=== PATIENT | female | born 1960 | race Caucasian/White ===

== ENCOUNTER 2019-09-06 09:16 | Outpatient (CLI) | payer OTHER, MEDICARE, SELFPAY ==
--- NOTE | 2019-09-06 09:29 | MM_ITS ---
WS: [id number] DIAGNOSTIC LEFT DIGITAL MAMMOGRAM WITH CAD LEFT breast ultrasound, limited HISTORY: 6 MO FOLLOW UP BREAST MASS COMPARISON: None available. Technique: CC, MLO and ML views. For compression LEFT MLO and LEFT CC. Breast composition: The breasts are heterogeneously dense, which may obscure small masses. Asymmetry in the central LEFT breast as the prior study is not quite as dense as previously seen. There is sti ll asymmetric fibroglandular tissue in the anterior breast and scattered calcifications. No distortio n. LEFT breast ultrasound. Ultrasound at 1:00, 3 cm from the nipple again demonstrates the vague hypoechoic mass which is ill-de fined and no shadowing measuring 1.7 x 0.6 x 1.4 cm. There is an adjacent well-circumscribed hypoecho ic nodule with calcification. Calcification is in this location on the mammogram. There are a few sca ttered hypodensities throughout the breast. These findings in totality are probably all benign. No ob vious progression of disease. MM/[place] [id number] IMPRESSION: BI-RADS: 3-Probably Benign FOLLOW UP: 6 Month Follow-up Patient to return for annual mammogram in January 2020. Additional imaging of the LEFT breast and possible ultrasound should be performed at that time. Long -term stability documentation is necessary.
== END 2019-09-06 09:17 | disposition home or self-care (01) ==
LOC: RADSHAW 09:16
PROVIDERS: Family Provider Family Medicine; PCP Family Medicine; Visit Provider Family Medicine
DX: N63.20 Unspecified lump in the left breast, unspecified quadrant (principal)
CPT/HCPCS: 76642; 77065

== ENCOUNTER 2020-03-15 14:05 | Inpatient (IN) | payer MEDICARE, SELFPAY ==
[2020-03-15] VITALS (7 sets, daily range): BP systolic 113–139; BP diastolic 69–112; PULSE 97–128; RESP 16–18; TEMP 36.9–37.1; O2SAT 90–98; BMI 46.6
[2020-03-15 15:52] LABS: Basophils # 0.1 10^3/uL (0.0-0.1); Basophils % 0.6 %; Eosinophils % 0.4 %; Hematocrit 41.9 % (37.0-47.0); Hemoglobin 13.3 g/dL (11.5-15.3); Lymphocytes # 1.3 10^3/uL (0.8-4.8); Lymphocytes % 12.7 %; Mean Corpuscular HGB Conc 31.7 g/dL (30.0-36.0); Mean Corpuscular Hemoglobin 30.2 pg (28.0-34.0); Mean Platelet Volume 8.5 fL (7.4-10.4); Monocytes # 0.6 10^3/uL (0.2-0.9); Neutrophils # 8.04 10^3/uL (1.8-7.7); Neutrophils % 79.5 %; Nucleated Red Blood Cells % 0 %; Platelet Count 276 10^3/cmm (130-400); Red Blood Count 4.41 10^6/uL (4.1-5.3); Red Cell Distribution Width 13.5 % (12.1-15.1); White Blood Count 10.1 10^3/uL (4.0-10.0)
--- NOTE | 2020-03-15 16:15 | CTR_ITS ---
PROCEDURE INFORMATION: Exam: CT Abdomen And Pelvis With Contrast Exam date and time: 03/15/2020 5:00 PM Age: 59 years old Clinical indication: Abdominal pain; Generalized; Prior surgery; Surgery date: 6+ months; Surgery type: Hystorectomy; Additional info: Abd pain TECHNIQUE: Imaging protocol: Computed tomography of the abdomen and pelvis with intravenous contrast. Radiation optimization: All CT scans at this facility use at least one of these dose optimization techniques: automated exposure control; mA and/or kV adjustment per patient size (includes targeted exams where dose is matched to clinical indication); or iterative reconstruction. Contrast material: VISIPAQUE 300; Contrast volume: 95 ml; Contrast route: INTRAVENOUS (IV); COMPARISON: No relevant prior studies available. RADIATION DOSE METRICS: Total DLP (mGy-cm): 1877.92 FINDINGS: Lungs: There is calcified granuloma at the right lung base. Liver: There is no focal abnormality within the liver. Gallbladder and bile ducts: The gallbladder is normal. The gallbladder is normal. Pancreas: The pancreas is normal. Spleen: The spleen is normal. Adrenals: The adrenal glands are normal. Kidneys and ureters: The kidneys are normal. There is no evidence of hydronephrosis. There is no evidence of renal or ureteral calcifications. Stomach and bowel: There is no evidence of colitis/diverticulitis. There is an abnormal loop of small bowel with wall thickening and mural stratification representing some focal enteritis of uncertain etiology. This could represent inflammatory bowel disease or could be related to other entities including medication-related. There is associated edema in the mesentery of the affected bowel loops. Appendix: A normal appendix is identified. Intraperitoneal space: There is ascites within the pelvis which has greater density posteriorly suggesting this may represent some hemorrhagic ascites. Vasculature: Unremarkable. No abdominal aortic aneurysm. Lymph nodes: Unremarkable. No enlarged lymph nodes. Urinary bladder: Unremarkable as visualized. Reproductive: There has been a hysterectomy. Bones/joints: The lumbar spine demonstrates moderate degenerative changes at multiple levels. Soft tissues: Unremarkable. CT/CT abdomen pelvis w con* [id number] IMPRESSION: 1. Nonspecific enteritis involving some small bowel loops in the left lower quadrant. 2. Hemorrhagic ascites. Radiation Dose CTDIVOL = (mGy): DLP = 1877.92 (mGy-cm)
--- NOTE | 2020-03-15 16:20 | W.ED.ABDPA2 ---
Documented by User: Zack Oneill DO 03/18/20 06:32 HPI - Abdominal Pain General: Chief Complaint: Abdominal Pain Stated Complaint: abdominal pain, labs check Time Seen by Provider: 03/15/20 15:51 History of Present Illness: HPI narrative: 59-year-old female presents to the emergency room with complaint of suprapubic pain radiating up into the right flank. She not noticed any fever she not noticed any hematuria but she has had microscopic hematuria in the past and is seen Dr. Mercedes. She is been very nauseous but she is not had any vomiting or diarrhea. Pain is sort of waxed and waned over the last several days. At all today she did once this morning and none since. She does not have any increase in back pain or new radicular leg pain. States this is been going on for the last 1 to 2 days. Additionally she has a mechanical prosthetic valve and is on Coumadin. She has had significant increase in bruising. MD elicited complaint: abdominal pain and flank pain Pertinent past history: past UTI Onset (ago): day(s) Location: RLQ Severity: severe Quality: cramping and aching Radiation: none Migration to: no migration Exacerbating factors: movement Relieving factors: medication and rest Context: other (Recent development of easy bruising, patient is on Coumadin for anticoagulation due to mechanical valve) Associated Symptoms: Reports anorexia, GI cramping, dysuria, nausea and poor appetite; Denies belching, bloating, change in bowel habits, change in stool character, chills, coffee ground emesis, constipation, diarrhea, dyspepsia, excessive flatus, fever(s), heartburn, hematochezia, hematuria, hematemesis, fecal incontinence, loose stools, melena, syncope and vomiting Review of Systems Const: Denies: fever(s) or chills ENMT: Denies: throat pain, ear or mastoid pain, nasal discharge or nasal congestion Card: Denies: syncope Resp: Denies: dyspnea, productive cough or non-productive cough GI: Reports: nausea and GI cramping; Denies: vomiting, hematemesis, coffee ground emesis, heartburn, diarrhea, constipation, bloating, belching, excessive flatus, fecal incontinence, change in bowel habits, change in stool character, hematochezia or melena : Reports: dysuria; Denies: hematuria Skin/Breast: Denies: rash or pruritus PFSH ED PFSH: Medical History Anxiety and depression Asymptomatic microscopic hematuria Cervical disc disease Fibromyalgia GERD (gastroesophageal reflux disease) takes OTC meds Hyperlipidemia Mitral valve disorder Smoker Surgical History History of ectopic I had surgery to clean scar tissue out of my tubes and I got a tubal that had to be operated on a couple years later History of fusion of cervical spine Anterior x 2 History of knee replacement, total Right History of left breast biopsy Hx of abdominal hysterectomy / BSO Hx of mitral valve replacement Mechanical 2008 Family History Father , AT AGE 84 COLON CANCER,PULMONARY FIBROSIS Cancer Mother Diabetes Social History Smoking and tobacco status: current every day smoker Alcohol intake: never Adopted: No Caregiver/support person: No Current occupational status: disabled Physical Exam Const: COMMON NORMALS: no acute distress GENERAL APPEARANCE: cooperative and comfortable ORIENTATION/CONSCIOUSNESS: Yes awake, Yes oriented to person, Yes oriented to place and Yes oriented to time HENMT: COMMON NORMALS: normocephalic, atraumatic and hearing grossly normal bilaterally HEAD & SCALP: normocephalic and atraumatic Neck/C-Spine: COMMON NORMALS: full ROM, no lymphadenopathy, supple and no JVD Resp: COMMON NORMALS: normal respiratory effort, No retractions, No use of accessory muscles and clear to auscultation bilaterally AUSCULTATION: clear to auscultation bilaterally Cardio: COMMON NORMALS: no JVD, regular rate, regular rhythm and No murmurs present (Cardio) RATE: regular rate RHYTHM: regular rhythm GI: COMMON NORMALS: No hepatosplenomegaly present AUSCULTATION: Yes normoactive bowel sounds PALPATION: Yes Tenderness to palpation present (GI) Details: RLQ, No Guarding due to palpation present (GI) and Yes No hepatosplenomegaly present Extremity: COMMON NORMALS: capillary refill normal, no clubbing, cyanosis or edema, no calf tenderness and no pedal edema Neuro: SENSORIUM/ORIENTATION: Yes oriented to person, Yes oriented to place and Yes oriented to time Skin: NARRATIVE SKIN EXAM: Several areas of bruising on the extremities Course Vital Signs: Vital signs: Vital Signs Temperature 97.9 F 03/18/20 03:04 Pulse Rate 80 03/18/20 03:04 Respiratory Rate 19 H 03/18/20 03:04 Blood Pressure 122/69 03/18/20 03:04 Pulse Oximetry 94 03/18/20 03:04 MDM - Abdominal Pain MDM Narrative: Medical decision making narrative: Care turned over to Dr. Wang at change of shift please see his notes for definitive diagnosis and disposition Lab Data: Labs: Lab Results 03/15/20 03/15/20 03/15/20 Range/Units 15:44 15:44 15:44 WBC 10.1 H (4.0-10.0) 10^3/ uL RBC 4.41 (4.1-5.3) 10^6/u L Hgb 13.3 (11.5-15.3) g/dL Hct 41.9 (37.0-47.0) % MCV 95.0 (81-99) fL MCH 30.2 (28.0-34.0) pg MCHC 31.7 (30.0-36.0) g/dL RDW 13.5 (12.1-15.1) % Plt Count 276 (130-400) 10^3/c mm MPV 8.5 (7.4-10.4) fL Neut % (Auto) 79.5 % Lymph % (Auto) 12.7 % Houghton % (Auto) 6.0 % Eos % (Auto) 0.4 % Baso % (Auto) 0.6 % Neut # (Auto) 8.04 H (1.8-7.7) 10^3/u L Lymph # (Auto) 1.3 (0.8-4.8) 10^3/u L Houghton # (Auto) 0.6 (0.2-0.9) 10^3/u L Eos # (Auto) 0.0 (0.0-0.8) 10^3/u L Baso # (Auto) 0.1 (0.0-0.1) 10^3/u L Nucleated RBC % (a uto) 0 % Nucleated RBCs # 0.0 /100WBC PT 71.80 H (12.1-14.9) SECO NDS INR 8.21 H* (0.8-1.2) APTT 190.1 H* (23.9-36.7) SECO NDS Sodium 132 L (136-145) mmol/L Potassium 4.1 (3.5-5.1) mmol/L Chloride 96 L (98-107) mmol/L Carbon Dioxide 24 (22-29) mmol/L Anion Gap 16.1 (5-19) BUN 12 (6-20) mg/dL Creatinine 1.2 H (0.5-0.9) mg/dL GFR Calculation 46.1 L (90-130) mL/min Glucose 130 H (65-115) mg/dL Calculated Osmolal ity 276 L (285-295) mOsm/k g Calcium 9.3 (8.5-10.5) mg/dL Iron (37-145) ug/dL TIBC mcg/dl % Saturation (20-50) % Unsat Iron Binding (112-347) ug/dL Total Bilirubin 0.5 (0.15-1.2) mg/dL AST 24 (0-32) U/L ALT 20 (0-33) U/L Alkaline Phosphata se 144 H (35-105) IU/L NT-Pro-B Natriuret Pep (0-125) pg/mL Total Protein 7.6 (6.6-8.7) g/dL Albumin 3.6 (3.5-5.2) g/dL Globulin 4.0 (1.3-4.6) g/dL Lipase 20 (13-60) U/L TSH (0.27-4.20) uIU/ mL Urine Color (Yellow) Urine Appearance (CLEAR) Urine pH (5-7) Ur Specific Gravit y (1.005-1.030) Urine Protein (Negative) Urine Glucose (UA) (Normal) Urine Ketones (Negative) Urine Blood (Negative) Urine Nitrate (Negative) Urine Bilirubin (Negative) Urine Urobilinogen (Negative) mg/dL Ur Leukocyte Leticia ase (Negative) Urine RBC (0-2) /hpf Urine WBC (0-5) /hpf Ur Squamous Epith Cells (0-5) /hpf Amorphous Sediment Urine Bacteria (NONE) /hpf 03/15/20 03/15/20 Range/Units 15:44 17:23 WBC (4.0-10.0) 10^3/ uL RBC (4.1-5.3) 10^6/u L Hgb (11.5-15.3) g/dL Hct (37.0-47.0) % MCV (81-99) fL MCH (28.0-34.0) pg MCHC (30.0-36.0) g/dL RDW (12.1-15.1) % Plt Count (130-400) 10^3/c mm MPV (7.4-10.4) fL Neut % (Auto) % Lymph % (Auto) % Houghton % (Auto) % Eos % (Auto) % Baso % (Auto) % Neut # (Auto) (1.8-7.7) 10^3/u L Lymph # (Auto) (0.8-4.8) 10^3/u L Houghton # (Auto) (0.2-0.9) 10^3/u L Eos # (Auto) (0.0-0.8) 10^3/u L Baso # (Auto) (0.0-0.1) 10^3/u L Nucleated RBC % (a uto) % Nucleated RBCs # /100WBC PT (12.1-14.9) SECO NDS INR (0.8-1.2) APTT (23.9-36.7) SECO NDS Sodium (136-145) mmol/L Potassium (3.5-5.1) mmol/L Chloride (98-107) mmol/L Carbon Dioxide (22-29) mmol/L Anion Gap (5-19) BUN (6-20) mg/dL Creatinine (0.5-0.9) mg/dL GFR Calculation (90-130) mL/min Glucose (65-115) mg/dL Calculated Osmolal ity (285-295) mOsm/k g Calcium (8.5-10.5) mg/dL Iron 26 L (37-145) ug/dL TIBC 266 mcg/dl % Saturation 9.7 L (20-50) % Unsat Iron Binding 240 (112-347) ug/dL Total Bilirubin (0.15-1.2) mg/dL AST (0-32) U/L ALT (0-33) U/L Alkaline Phosphata se (35-105) IU/L NT-Pro-B Natriuret Pep 275 H (0-125) pg/mL Total Protein (6.6-8.7) g/dL Albumin (3.5-5.2) g/dL Globulin (1.3-4.6) g/dL Lipase (13-60) U/L TSH 1.47 (0.27-4.20) uIU/ mL Urine Color Yellow (Yellow) Urine Appearance Sl cloudy A (CLEAR) Urine pH 5 (5-7) Ur Specific Gravit y 1.005 (1.005-1.030) Urine Protein Neg (Negative) Urine Glucose (UA) Norm (Normal) Urine Ketones Negative (Negative) Urine Blood 3+ H (Negative) Urine Nitrate Negative (Negative) Urine Bilirubin Neg (Negative) Urine Urobilinogen Neg (Negative) mg/dL Ur Leukocyte Leticia ase Negative (Negative) Urine RBC 15-25 H (0-2) /hpf Urine WBC 0-4 H (0-5) /hpf Ur Squamous Epith Cells 10-15 H (0-5) /hpf Amorphous Sediment Not Reportable Urine Bacteria 1+ H (NONE) /hpf Discharge Plan Discharge Patient Disposition: Admitted As Inpatient Admit Provider: Lauren Arnett Clinical Impression: Coagulopathy, Hemorrhagic ascites Condition: Stable Referrals: Elver Veloz MD [Primary Care Provider] - Discharge Date/Time: 03/15/20 19:05 Coding Level of Care Code ED Furniture Mover Driver for Chg Fwd Documented by User: Cole Wang DO 03/15/20 18:29 HPI - Abdominal Pain General: Chief Complaint: Abdominal Pain Stated Complaint: abdominal pain, labs check Time Seen by Provider: 03/15/20 15:51 PFSH ED PFSH: Medical History Anxiety and depression Asymptomatic microscopic hematuria Cervical disc disease Fibromyalgia GERD (gastroesophageal reflux disease) takes OTC meds Hyperlipidemia Mitral valve disorder Smoker Surgical History History of ectopic I had surgery to clean scar tissue out of my tubes and I got a tubal that had to be operated on a couple years later History of fusion of cervical spine Anterior x 2 History of knee replacement, total Right History of left breast biopsy Hx of abdominal hysterectomy / BSO Hx of mitral valve replacement Mechanical 2007 Family History Father , AT AGE 84 COLON CANCER,PULMONARY FIBROSIS Cancer Mother Diabetes Social History Smoking and tobacco status: current every day smoker Alcohol intake: never Adopted: No Caregiver/support person: No Current occupational status: disabled Course Vital Signs: Vital signs: Vital Signs Temperature 97.9 F 03/18/20 03:04 Pulse Rate 80 03/18/20 03:04 Respiratory Rate 19 H 03/18/20 03:04 Blood Pressure 122/69 03/18/20 03:04 Pulse Oximetry 94 03/18/20 03:04 MDM - Abdominal Pain MDM Narrative: Medical decision making narrative: 59-year-old lady checked out to me by Dr. Oneill at shift change. This lady had experienced mainly right-sided belly pain. She was also concerned that she has been taking too much Coumadin. Her hemoglobin is 13. Her white blood cell count is 10. Her INR is 9. She has hemorrhagic ascites and a focal area of enteritis of her small bowel on CT, that is likely a small amount of hemorrhage as well. She will come in for Coumadin coagulopathy as well as monitoring her blood count Lab Data: Labs: Lab Results 03/15/20 03/15/20 03/15/20 Range/Units 15:44 15:44 15:44 WBC 10.1 H (4.0-10.0) 10^3/ uL RBC 4.41 (4.1-5.3) 10^6/u L Hgb 13.3 (11.5-15.3) g/dL Hct 41.9 (37.0-47.0) % MCV 95.0 (81-99) fL MCH 30.2 (28.0-34.0) pg MCHC 31.7 (30.0-36.0) g/dL RDW 13.5 (12.1-15.1) % Plt Count 276 (130-400) 10^3/c mm MPV 8.5 (7.4-10.4) fL Neut % (Auto) 79.5 % Lymph % (Auto) 12.7 % [place] % (Auto) 6.0 % Eos % (Auto) 0.4 % Baso % (Auto) 0.6 % Neut # (Auto) 8.04 H (1.8-7.7) 10^3/u L Lymph # (Auto) 1.3 (0.8-4.8) 10^3/u L [place] # (Auto) 0.6 (0.2-0.9) 10^3/u L Eos # (Auto) 0.0 (0.0-0.8) 10^3/u L Baso # (Auto) 0.1 (0.0-0.1) 10^3/u L Nucleated RBC % (a uto) 0 % Nucleated RBCs # 0.0 /100WBC PT 71.80 H (12.1-14.9) SECO NDS INR 8.21 H* (0.8-1.2) APTT 190.1 H* (23.9-36.7) SECO NDS Sodium 132 L (136-145) mmol/L Potassium 4.1 (3.5-5.1) mmol/L Chloride 96 L (98-107) mmol/L Carbon Dioxide 24 (22-29) mmol/L Anion Gap 16.1 (5-19) BUN 12 (6-20) mg/dL Creatinine 1.2 H (0.5-0.9) mg/dL GFR Calculation 46.1 L (90-130) mL/min Glucose 130 H (65-115) mg/dL Calculated Osmolal ity 276 L (285-295) mOsm/k g Calcium 9.3 (8.5-10.5) mg/dL Iron (37-145) ug/dL TIBC mcg/dl % Saturation (20-50) % Unsat Iron Binding (112-347) ug/dL Total Bilirubin 0.5 (0.15-1.2) mg/dL AST 24 (0-32) U/L ALT 20 (0-33) U/L Alkaline Phosphata se 144 H (35-105) IU/L NT-Pro-B Natriuret Pep (0-125) pg/mL Total Protein 7.6 (6.6-8.7) g/dL Albumin 3.6 (3.5-5.2) g/dL Globulin 4.0 (1.3-4.6) g/dL Lipase 20 (13-60) U/L TSH (0.27-4.20) uIU/ mL Urine Color (Yellow) Urine Appearance (CLEAR) Urine pH (5-7) Ur Specific Gravit y (1.005-1.030) Urine Protein (Negative) Urine Glucose (UA) (Normal) Urine Ketones (Negative) Urine Blood (Negative) Urine Nitrate (Negative) Urine Bilirubin (Negative) Urine Urobilinogen (Negative) mg/dL Ur Leukocyte Leticia ase (Negative) Urine RBC (0-2) /hpf Urine WBC (0-5) /hpf Ur Squamous Epith Cells (0-5) /hpf Amorphous Sediment Urine Bacteria (NONE) /hpf 03/15/20 03/15/20 Range/Units 15:44 17:23 WBC (4.0-10.0) 10^3/ uL RBC (4.1-5.3) 10^6/u L Hgb (11.5-15.3) g/dL Hct (37.0-47.0) % MCV (81-99) fL MCH (28.0-34.0) pg MCHC (30.0-36.0) g/dL RDW (12.1-15.1) % Plt Count (130-400) 10^3/c mm MPV (7.4-10.4) fL Neut % (Auto) % Lymph % (Auto) % [place] % (Auto) % Eos % (Auto) % Baso % (Auto) % Neut # (Auto) (1.8-7.7) 10^3/u L Lymph # (Auto) (0.8-4.8) 10^3/u L [place] # (Auto) (0.2-0.9) 10^3/u L Eos # (Auto) (0.0-0.8) 10^3/u L Baso # (Auto) (0.0-0.1) 10^3/u L Nucleated RBC % (a uto) % Nucleated RBCs # /100WBC PT (12.1-14.9) SECO NDS INR (0.8-1.2) APTT (23.9-36.7) SECO NDS Sodium (136-145) mmol/L Potassium (3.5-5.1) mmol/L Chloride (98-107) mmol/L Carbon Dioxide (22-29) mmol/L Anion Gap (5-19) BUN (6-20) mg/dL Creatinine (0.5-0.9) mg/dL GFR Calculation (90-130) mL/min Glucose (65-115) mg/dL Calculated Osmolal ity (285-295) mOsm/k g Calcium (8.5-10.5) mg/dL Iron 26 L (37-145) ug/dL TIBC 266 mcg/dl % Saturation 9.7 L (20-50) % Unsat Iron Binding 240 (112-347) ug/dL Total Bilirubin (0.15-1.2) mg/dL AST (0-32) U/L ALT (0-33) U/L Alkaline Phosphata se (35-105) IU/L NT-Pro-B Natriuret Pep 275 H (0-125) pg/mL Total Protein (6.6-8.7) g/dL Albumin (3.5-5.2) g/dL Globulin (1.3-4.6) g/dL Lipase (13-60) U/L TSH 1.47 (0.27-4.20) uIU/ mL Urine Color Yellow (Yellow) Urine Appearance Sl cloudy A (CLEAR) Urine pH 5 (5-7) Ur Specific Gravit y 1.005 (1.005-1.030) Urine Protein Neg (Negative) Urine Glucose (UA) Norm (Normal) Urine Ketones Negative (Negative) Urine Blood 3+ H (Negative) Urine Nitrate Negative (Negative) Urine Bilirubin Neg (Negative) Urine Urobilinogen Neg (Negative) mg/dL Ur Leukocyte Leticia ase Negative (Negative) Urine RBC 15-25 H (0-2) /hpf Urine WBC 0-4 H (0-5) /hpf Ur Squamous Epith Cells 10-15 H (0-5) /hpf Amorphous Sediment Not Reportable Urine Bacteria 1+ H (NONE) /hpf Discharge Plan Discharge Patient Disposition: Admitted As Inpatient Admit Provider: Lauren Arntet Clinical Impression: Coagulopathy, Hemorrhagic ascites Condition: Stable Referrals: Elver Veloz MD [Primary Care Provider] - Discharge Date/Time: 03/15/20 19:05 Coding Level of Care Code ED Furniture Mover Driver for Bertin Felix
[2020-03-15 16:30] LABS: Alanine Aminotransferase 20 U/L (0-33); Albumin Level 3.6 g/dL (3.5-5.2); Alkaline Phosphatase 144 IU/L (35-105); Anion Gap 16.1 (5-19); Aspartate Amino Transferase 24 U/L (0-32); Blood Urea Nitrogen 12 mg/dL (6-20); Calcium 9.3 mg/dL (8.5-10.5); Carbon Dioxide 24 mmol/L (22-29); Chloride 96 mmol/L (98-107); Glomerular Filtration Rate 46.1 mL/min (90-130); Glucose 130 mg/dL (65-115); Lipase 20 U/L (13-60); Osmolality Calculated 276 mOsm/kg (285-295); Potassium 4.1 mmol/L (3.5-5.1); Sodium 132 mmol/L (136-145); Total Bilirubin 0.5 mg/dL (0.15-1.2); Total Protein 7.6 g/dL (6.6-8.7)
[2020-03-15] MEDS: iodixanol 320 mg/mL 100mL Btl IV (17:08)
[2020-03-15 17:22] LABS: INR 8.21 (0.8-1.2); Partial Thromboplastin Time 190.1 SECONDS (23.9-36.7)
[2020-03-15 17:54] LABS: Add Urine Microscopic? YES; Bilirubin Urine Neg (Negative); Blood Urine 3+ (Negative); Glucose Urine UA Norm (Normal); Ketones Urine Negative (Negative); Leukocyte Esterase Urine Negative (Negative); Nitrate Urine Negative (Negative); Protein Urine Neg (Negative); Specific Gravity, Urine 1.005 (1.005-1.030); Urine Color Yellow (Yellow); Urobilinogen Urine Neg (Negative); pH Urine 5 (5-7)
[2020-03-15 18:01] LABS: WBC Urine 0-4 /hpf (0-5)
[2020-03-15 18:02] LABS: Add Urine Culture? No; Bacteria Urine 1+ /hpf; RBC Urine 15-25 /hpf (0-2)
[2020-03-15] MEDS: ondansetron 2 mg/ML SDV 2 mL 4 MG IVP (18:11)
[2020-03-15] MEDS: morphine 4 mg/mL SDV 1 mL IVP (18:13)
[2020-03-15] MEDS: nicotine 21 mg Patch 1 PATCH TRANSDERMA (18:25)
[2020-03-15] MEDS: LORazepam 2 mg/mL INJ 1 mL 1 MG IVP (18:26)
--- NOTE | 2020-03-15 18:55 | PM.HP ---
Providers/Chief Complaint Primary Care Provider: Elver Veloz MD Chief Complaint: sent from doc/ History of Present Illness Jyothi Hendrix is a 59 year old female with past medical history of mechanical mitral valve placement more than 10 years ago, on chronic Coumadin 8 mg daily, anxiety/depression, chronic smoker along with other medical problems who presented to the ER today because she was afraid that she took more Coumadin dose then she needed to. Patient states at baseline she supposed to take 8 mg of Coumadin every day but there was a mixup in her pill maintenance planner and she was taking 30 mg tablets every day for last 10 days almost. She is also been complaining of right flank pain radiating to groin for last 2 days which she thought was secondary to possibly passing kidney stone. She denies of having any fever, diarrhea, dysuria, nausea, vomiting, fever or flulike symptoms or exposure to COVID-19. She does states that last week she saw Dr. Mercedes for hematuria. In the ER her blood work showed white count of 10.1, hemoglobin of 13.3, platelet count of 276, INR of 8.2, sodium of 132, chloride of 96, BUN of 12, creatinine of 1.2, lactate of 1.2, AST/ALT of 24/20, alkaline phosphatase of 144, BNP of 275, lipase of 20 UA showing 3+ blood, negative nitrite, negative leuk esterase with CT abdomen pelvis showing nonspecific enteritis involving the small bowel loops in the left lower quadrant along with possible hemorrhagic localized cystitis which as per the radiologist most likely represents focal small bowel hemorrhage with hemorrhagic ascites. Review of Systems General: Reports: 10 or more systems reviewed and unremarkable except in HPI and below Const: Denies: fever(s), chills, body aches, change in appetite, change in weight, malaise, night sweats, diaphoresis, change in sleep pattern, daytime sleepiness or snoring Eyes: Denies: change in vision, blurry vision, photophobia, eye discomfort or eye discharge ENMT: Denies: throat pain, enlarged tonsils, hoarseness, mouth pain, oral sores, dry mouth, tinnitus, nasal congestion or post nasal drip Card: Denies: chest pain, palpitations, irregular heart rhythm, edema, swelling of feet/ankles, lightheadedness, syncope, pre-syncope, dyspnea on exertion, orthopnea, leg pain with exertion or acrocyanosis Resp: Denies: dyspnea, productive cough, non-productive cough, wheezing, stridor, pain on inspiration, change in phlegm color, hemoptysis or chest congestion GI: Denies: abdominal pain, nausea, vomiting, hematemesis, coffee ground emesis, dysphagia, heartburn, diarrhea, constipation, bloating, GI cramping, change in bowel habits, pain on defecation, hematochezia or melena : Denies: flank pain, dysuria, urinary frequency, urinary urgency, urinary hesitancy, nocturia or hematuria Musc: Denies: neck pain, back pain, extremity pain, joint pain, joint swelling, joint redness, joint stiffness or limited range of motion Neuro: Denies: headache(s), numbness in extremities, weakness in extremities, sensory changes, lack of coordination, difficulty walking, frequent falls, dizziness, vertigo, confusion, Slurred speech present, difficulty communicating thoughts or seizure-like activity Psych: Denies: anxiety, depression, mood swings, panic attacks, hopelessness or irritability Endo: Denies: polyuria, polydipsia, tired all the time, cold intolerance, excessive sweating, flushing or heat intolerance John/Lymph: Denies: easy bruising or easy bleeding All/Imm: Denies: tongue swelling, facial swelling or acute wheezing Medications/Allergies Allergies Allergy/AdvReac Type Severity Reaction Status Date / Time amitriptyline [From Elavil] Allergy Unknown Unknown Verified 03/15/20 12:31 PFSH Acute PFSH: Medical History Anxiety and depression Asymptomatic microscopic hematuria Cervical disc disease Fibromyalgia Hyperlipidemia Mitral valve disorder Smoker Surgical History (Updated 03/15/20 @ 19:08 by Carlos Otoole MD) History of fusion of cervical spine History of knee replacement, total Hx of abdominal hysterectomy Hx of mitral valve replacement Family History (Updated 03/15/20 @ 12:37 by ZOYA Ornelas) Father , AT AGE 84 COLON CANCER,PULMONARY FIBROSIS Cancer Mother Diabetes Social History (Updated 03/15/20 @ 14:53 by Shar Adams RN) Smoking and tobacco status: current every day smoker Alcohol intake: never Adopted: No Caregiver/support person: No Current occupational status: disabled Vitals/I&O/Wt Last Vital Signs Temp 98.6 F 03/15/20 14:45 Pulse 128 H 03/15/20 18:15 Resp 18 03/15/20 18:15 BP 139/112 03/15/20 18:15 Pulse Ox 97 03/15/20 18:15 Weight last 48 hrs Weight 135.171 kg Physical Exam Narrative: EXAM NARRATIVE: General: No acute distress, AO x3, morbidly obese, anxious HEENT: PERRLA, pupils bilaterally equal and reactive Chest: Normal vesicular breath sounds, no added sounds, equal good air entry bilaterally CVS: S1-S2 regular, no murmurs, no tachycardia, no gallops, no rubs, mitral click heard Abdomen: Soft, tender in right lower quadrant, no flank tenderness, no organomegaly, bowel sounds present Neuro: No focal deficits, no facial deformity, AO x3, power 5/5 in all limbs Data : 03/15/20 15:44 03/15/20 15:44 A&P Assessment and plan (1) Supratherapeutic INR: Status: Acute (2) Coagulopathy: Status: Acute (3) Hemorrhagic ascites: Status: Acute (4) Enteritis: Status: Acute (5) Hx of mitral valve replacement: Status: Acute (6) Anxiety and depression: Status: Acute (7) Smoker: Discussed in detail regarding need of smoking cessation for patient. She states she is trying to quit. Nicotine patch. Status: Acute Additional A&P Information 51-year-old female presented to the ER because of mixup in her Coumadin dose along with right flank pain found to have an INR of [address] scan concerning for enteritis and possible hemorrhagic ascites. Supratherapeutic INR: Goal INR 2.5-3.5 for mechanical mitral valve. INR 8. Patient was given 5 mg of IV vitamin K in the ER. I am mildly concerned for overcorrection of INR. We will check INR again at around 11 PM. If INR overcorrected might have to start patient on heparin drip. We will monitor INR daily for now. Continue holding Coumadin till INR in range. Enteritis/hemorrhagic ascites: Surgery has been consulted through ER. We will await Dr. Schroeder's recommendations. N.p.o. for now. Stool studies. Start on Cipro and Flagyl IV. Monitor hemoglobin at 11 PM and then daily. Mechanical mitral valve: Good click heard on patient today. Echocardiogram done for EF and mitral valve function. Anxiety: Medication list reconciled with patient. Continue on multiple anxiety medications which she takes at home including clonazepam 1 mg twice daily, duloxetine 60 mg twice daily, BuSpar 15 mg twice daily, temazepam 15 mg at bedtime. Hypertension: Goal blood pressure less than 140/90 mmHg. Patient takes metoprolol 50 mg twice daily at home. Continue the same for now. Patient is mildly tachycardic but has no other signs of shock. Full code. N.p.o. Protonix for PUD prophylaxis Supratherapeutic INR so need no need of DVT pharmacological prophylaxis. Admit to CSU Attestations Medical Necessity Statement*: for more than 2 midnights for treatment of hemorrhagic ascitis due to entritis in setting of supratherapeutic INR and mechanical mitral valve Time Spent in Patient Care: Greater than 35 minutes (>than 50% of time spent in counselling and/or direct pt care on unit). Coding Level of Care Code Acute Exhibitor Sales for [facility] Fwd Diagnoses Supratherapeutic INR R79.1 Coagulopathy D68.9 Hemorrhagic ascites R18.8 Enteritis K52.9 Hx of mitral valve replacement Z95.2 Anxiety and depression F41.9; F32.9 Smoker F17.200
[2020-03-15] MEDS: phytonadione (ADULT) 10 mg/mL Ampule 1 mL 5 MG IV (19:06)
[2020-03-15] MEDS: pantoprazole 40 mg SDV IVP (19:27)
[2020-03-15 19:49] LABS: Iron 26 ug/dL (37-145); NT Pro B Type Natriuretic Pept 275 pg/mL (0-125); Percent Saturation 9.7 % (20-50); Thyroid Stimulating Hormone 1.47 uIU/mL (0.27-4.20); Total Iron Binding Capacity 266 mcg/dl; Unsaturated Iron Binding 240 ug/dL (112-347)
[2020-03-15 20:50] LABS: Lactic Sepsis W/Reflex 1.2 mmol/L (0.5-2.2)
[2020-03-15] MEDS: duloxetine 60 mg Capsule PO (21:34)
[2020-03-15] MEDS: ciprofloxacin 200 MG/100 ML PREMIX 100 MG IV (21:34)
[2020-03-15] MEDS: metoprolol tartrate 50 mg Tablet PO (21:34)
[2020-03-15] MEDS: CLONazepam 1 mg Tablet PO (21:34)
[2020-03-15] MEDS: temazepam 15 mg Capsule PO (21:34)
[2020-03-15] MEDS: metroNIDAZOLE IV 500 MG/100 ML PREMIX 100 MG IV (21:35)
[2020-03-15] MEDS: sodium chlor 0.9% + KCl 20 mEq 20 MEQ/1,000 ML BAG 50 MEQ IV (21:36)
[2020-03-15 23:40] LABS: Hematocrit 36.7 % (37.0-47.0); Hemoglobin 11.5 g/dL (11.5-15.3)
[2020-03-15 23:47] LABS: INR 1.79 (0.8-1.2)
[2020-03-16] VITALS (9 sets, daily range): BP systolic 104–121; BP diastolic 64–80; PULSE 78–100; RESP 16–23; TEMP 36.5–37.2; O2SAT 90–98
[2020-03-16] MEDS: morphine 4 mg/mL SDV 1 mL 2 MG IVP ×2 (02:08→16:01)
[2020-03-16] MEDS: metroNIDAZOLE IV 500 MG/100 ML PREMIX 100 MG IV ×3 (03:59→20:02)
[2020-03-16 05:35] LABS: Basophils # 0.1 10^3/uL (0.0-0.1); Basophils % 0.7 %; Eosinophils # 0.1 10^3/uL (0.0-0.8); Eosinophils % 1.1 %; Hematocrit 34.8 % (37.0-47.0); Lymphocytes # 1.2 10^3/uL (0.8-4.8); Lymphocytes % 17.3 %; Mean Corpuscular HGB Conc 31.6 g/dL (30.0-36.0); Mean Corpuscular Volume 94.8 fL (81-99); Mean Platelet Volume 8.8 fL (7.4-10.4); Monocytes # 0.7 10^3/uL (0.2-0.9); Monocytes % 9.2 %; Neutrophils # 4.99 10^3/uL (1.8-7.7); Neutrophils % 70.6 %; Nucleated Red Blood Cells % 0 %; Platelet Count 239 10^3/cmm (130-400); Red Blood Count 3.67 10^6/uL (4.1-5.3); Red Cell Distribution Width 13.5 % (12.1-15.1); White Blood Count 7.1 10^3/uL (4.0-10.0)
[2020-03-16 05:47] LABS: INR 1.45 (0.8-1.2)
[2020-03-16 06:02] LABS: Alanine Aminotransferase 13 U/L (0-33); Albumin Level 2.9 g/dL (3.5-5.2); Alkaline Phosphatase 107 IU/L (35-105); Anion Gap 11.1 (5-19); Aspartate Amino Transferase 17 U/L (0-32); Blood Urea Nitrogen 12 mg/dL (6-20); Calcium 8.6 mg/dL (8.5-10.5); Carbon Dioxide 24 mmol/L (22-29); Chloride 104 mmol/L (98-107); Globulin 3.1 g/dL (1.3-4.6); Glucose 111 mg/dL (65-115); Magnesium 1.9 mg/dL (1.7-2.3); Osmolality Calculated 280 mOsm/kg (285-295); Phosphorus 2.8 mg/dL (2.5-4.5); Potassium 4.1 mmol/L (3.5-5.1); Sodium 135 mmol/L (136-145); Total Bilirubin 1.1 mg/dL (0.15-1.2)
--- NOTE | 2020-03-16 08:07 | PM.PN ---
Subjective Subjective: Interval history: No acute events overnight. Patient has remained hemodynamically stable. No abdominal pain currently. On examination patient sleeping comfortably in bed. Has not had any bowel movements. Vitals/I&O/Wt Last Vital Signs Temp 98.2 F 03/16/20 07:40 Pulse 95 03/16/20 07:40 Resp 20 H 03/16/20 07:40 BP 104/76 03/16/20 07:40 Pulse Ox 98 03/16/20 07:40 03/15/20 03/16/20 03/16/20 22:59 06:59 14:59 Intake Total 100 / 100 Balance 100 / 100 Weight last 48 hrs Weight 135.579 kg Weight 135.171 kg Physical Exam Narrative: EXAM NARRATIVE: General: No acute distress, AO x3, morbidly obese, HEENT: PERRLA, pupils bilaterally equal and reactive Chest: Normal vesicular breath sounds, no added sounds, equal good air entry bilaterally CVS: S1-S2 regular, no murmurs, no tachycardia, no gallops, no rubs, mitral click heard Abdomen: Soft, tender in right lower quadrant, no flank tenderness, no organomegaly, bowel sounds present Neuro: No focal deficits, no facial deformity, AO x3, power 5/5 in all limbs Data : 03/16/20 13:54 03/16/20 05:13 A&P Assessment and plan (1) Supratherapeutic INR: Status: Acute (2) Coagulopathy: Status: Acute (3) Hemorrhagic ascites: Status: Acute (4) Enteritis: Status: Acute (5) Hx of mitral valve replacement: Status: Acute (6) Anxiety and depression: Status: Acute (7) Smoker: Discussed in detail regarding need of smoking cessation for patient. She states she is trying to quit. Nicotine patch. Status: Acute Additional A&P Information 51-year-old female presented to the ER because of mixup in her Coumadin dose along with right flank pain found to have an INR of [address] scan concerning for enteritis and possible hemorrhagic ascites. Supratherapeutic INR: Goal INR 2.5-3.5 for mechanical mitral valve. INR overcorrected with vitamin K given in the ER. 1.4 today morning. Start patient on heparin drip without bolus. We will continue to monitor hemoglobin every 12 hourly. Recheck hemoglobin at 3 PM if stable can start patient on 6 mg of warfarin from today evening. Check INR daily. For now continue heparin until INR starts coming in goal. Enteritis/hemorrhagic ascites: Appreciate Dr. Schroeder's recommendations. Started on clear liquid diet. We will continue to monitor. Stool studies sent results awaited.. Start on Cipro and Flagyl IV. For hemorrhagic cystitis continue to trend hemoglobin every 12 hourly. Hemoglobin 11.5 last night and 11 today morning. Most likely slightly dilutional. Patient has remained hemodynamically stable. Iron panel suggestive of iron deficiency anemia so we will start patient on IV iron supplementation. [place]ORET[place]: Creatinine 1.2 yesterday trending down to 1.1 today. We do not have baseline. Medical reconciliation done for nephrotoxic drugs. Mechanical mitral valve cardiogram done shows an EF of 62% with normal positioning and normal functioning bioprosthetic mitral valve with peak velocity across the valve of 2 mm/s Anxiety: Medication list reconciled with patient. Continue on multiple anxiety medications which she takes at home including clonazepam 1 mg twice daily, duloxetine 60 mg twice daily, BuSpar 15 mg twice daily, temazepam 15 mg at bedtime. Hypertension: Goal blood pressure less than 140/90 mmHg. Patient takes metoprolol 50 mg twice daily at home. For now will decrease to 25 mg twice daily. Started on clear liquid diet and tolerating well so we will stop IV fluids. Full code. Clear liquid diet. Protonix for PUD prophylaxis Started on heparin drip. Attestations Medical Necessity Statement*: Needs further hospitalization for management of enteritis along with hemorrhagic ascites in setting of overcorrected supratherapeutic INR for mechanical mitral valve now on heparin drip. Time Spent in Patient Care: Greater than 35 minutes (>than 50% of time spent in counselling and/or direct pt care on unit). Coding Level of Care Code Acute Litigation Claim Representative for [facility] Fwd Diagnoses Supratherapeutic INR R79.1 Coagulopathy D68.9 Hemorrhagic ascites R18.8 Enteritis K52.9 Hx of mitral valve replacement Z95.2 Anxiety and depression F41.9; F32.9 Smoker F17.200
--- NOTE | 2020-03-16 08:10 | PC.NURSE ---
Heparin order clarified with Dr. Otoole. telephone order received to not administer loading dose, start patient on 14 units/kg/hr. RBTO. Nurse to continue to monitor.
--- NOTE | 2020-03-16 08:39 | P.CONIM_ITS ---
Providers/Reason For Consult Consulting Physican/Specialty*: General Surgery Michael Schroeder MD Reason for Consult*: Abdominal pain, coagulopathy, abnormal CAT scan. Attending Physician: Carlos Otoole MD Primary Care Provider: Elver Veloz MD History of Present Illness History of Present Illness Jyothi Hendrix is a 59 year old female who says that she developed some right lower quadrant/right groin pain a couple of nights ago. She reports no history of trauma. She saw a nurse practitioner who eventually sent her to the emergency room. The patient also mentioned that she realized she had been taking too much Coumadin for perhaps 10 days. Her INR was found to be signific antly elevated. In addition, a CAT scan of the abdomen and pelvis showed a focal area of small bowel enteritis in addition to some fluid in the abdomen that the radiologist thought may have some blood within it. The patient denies any fevers or chills. She says her bowel movements have been normal although she admits to ongoing constipation and takes daily MiraLAX and stool softeners for this. She has not had any evidence of hematochezia or melena. Everyone else around her has not been ill, nor have they gotten any abdominal problems eating the same things that she has been eating. The patient says her abdominal pain is better, but it is still present. Review of Systems General: Reports: 10 or more systems reviewed and unremarkable except in HPI and below Const: Denies: fever(s) or chills GI: Reports: abdominal pain and constipation ( Normal for me ); Denies: vomiting or change in bowel habits : Reports: hematuria (Microscopic -saw Dr. Mercedes and no problems were found) Meds/Allergies Home Medications and Allergies Allergies Allergy/AdvReac Type Severity Reaction Status Date / Time amitriptyline [From Elavil] Allergy Unknown I cannot Verified 03/16/20 09:16 remember -- it happened 30 years ago Current Medications Current Medications Generic Name Dose Route Start Last Admin Trade Name Freq PRN Reason Stop Dose Admin Buspirone HCl 15 mg 03/15/20 19:30 03/15/20 21:33 Buspar PO 15 mg BID CAESAR Administration Clonazepam 1 mg 03/15/20 19:30 03/15/20 21:34 Klonopin PO 1 mg BID CAESAR Administration Duloxetine HCl 60 mg 03/15/20 19:30 03/15/20 21:34 Cymbalta PO 60 mg BID CAESAR Administration Potassium Chloride/Sodium Chloride 20 meq in 1,000 mls @ 50 mls/hr 03/15/20 19:06 03/15/20 21:36 Sodium Chlor 0.9% + Kcl 20 Meq IV 50 mls/hr .Q20H CAESAR Administration Ciprofloxacin/Dextrose 200 mg in 100 mls @ 100 mls/hr 03/15/20 21:00 03/15/20 21:34 Cipro IV 100 mls/hr Q12H CAESAR Administration Protocol Metronidazole 500 mg in 100 mls @ 100 mls/hr 03/15/20 20:00 03/16/20 03:59 Flagyl Iv IV 100 mls/hr Q8H CAESAR Administration Protocol Morphine Sulfate 2 mg 03/15/20 19:10 03/16/20 02:08 Morphine IVP 2 mg Q4H PRN Administration SEVERE PAIN Pantoprazole Sodium 40 mg 03/15/20 19:06 03/15/20 19:27 Protonix IVP 40 mg DAILY CAESAR Administration Temazepam 15 mg 03/15/20 21:00 03/15/20 21:34 Restoril PO 15 mg BEDTIME CAESAR Administration PFSH Acute PFSH: Medical History Anxiety and depression Asymptomatic microscopic hematuria Cervical disc disease Fibromyalgia GERD (gastroesophageal reflux disease) takes OTC meds Hyperlipidemia Mitral valve disorder Smoker Surgical History (Updated 03/16/20 @ 09:14 by Michael Schroeder MD) History of ectopic I had surgery to clean scar tissue out of my tubes and I got a tubal that had to be operated on a couple years later History of fusion of cervical spine Anterior x 2 History of knee replacement, total Right History of left breast biopsy Hx of abdominal hysterectomy / BSO Hx of mitral valve replacement Mechanical 2007 Family History Father , AT AGE 84 COLON CANCER,PULMONARY FIBROSIS Cancer Mother Diabetes Social History Smoking and tobacco status: current every day smoker Alcohol intake: never Adopted: No Caregiver/support person: No Current occupational status: disabled Vitals/I&O/Wt Last Vital Signs Temp 98.2 F 03/16/20 07:40 Pulse 95 03/16/20 07:40 Resp 20 H 03/16/20 07:40 BP 104/76 03/16/20 07:40 Pulse Ox 98 03/16/20 07:40 03/15/20 03/16/20 03/16/20 22:59 06:59 14:59 Intake Total 100 / 100 Balance 100 / 100 Weight last 48 hrs Weight 298 lb 14.4 oz Weight 298 lb Physical Exam Narrative: EXAM NARRATIVE: The patient was encountered in her hospital room. She does not appear to be in any distress. The pupils are equal. No carotid bruits are heard. Lungs are clear anteriorly. The heart is regular and there is a mechanical heart valve sound best heard at the left lower sternal border and over the mitral area. The abdomen is obese and has hypoactive bowel sounds. The patient seemed to have significant moderate epigastric tenderness when I first palpated, but upon repeat exam it does not seem to be as bad. She has very mild scattered lower abdominal tenderness. No obvious masses are palpated. The extremities reveal no significant edema. Neurologically the patient appears to be grossly intact. Data Imaging^: CT Abd/Pel: Radiologist's impression: CT abdomen/pelvis 03/15/2020 IMPRESSION: 1. Nonspecific enteritis involving some small bowel loops in the left lower quadrant. 2. Hemorrhagic ascites. A&P Assessment and plan (1) Enteritis: CT reviewed. There is no question that the patient appears to have a focal area of small bowel enteritis in the left lower quadrant. Interestingly, this is not where she seems to be tender. The patient continues on Ciprofloxaclin and metronidazole. White blood cell count remains normal. Status: Acute (2) Hemorrhagic ascites: The patient has a small amount of fluid in the pelvis that the radiologist thinks may have some blood within it. Obviously this is somewhat hard to know with any certainty but is a possibility given the patient's recent supratherapeutic INR. I do not anticipate that this is going to be any kind of an issue as the INR is brought down. Status: Acute Consult Attestations Medical Necessity Statement: See admitting service's notation. Coding Level of Care Code Acute Advice Nurse for [facility] Diagnoses Enteritis K52.9 Hemorrhagic ascites R18.8
[2020-03-16] MEDS: metoprolol tartrate 25 mg Tablet PO ×2 (09:20→17:32)
[2020-03-16] MEDS: CLONazepam 1 mg Tablet PO ×2 (09:20→17:31)
[2020-03-16] MEDS: duloxetine 60 mg Capsule PO ×2 (09:20→17:31)
[2020-03-16] MEDS: pantoprazole 40 mg SDV IVP (09:21)
[2020-03-16] MEDS: heparin drip 25,000 UNIT/500 ML PREMIX 36 UNIT IV (09:27)
[2020-03-16] MEDS: ciprofloxacin 200 MG/100 ML PREMIX 100 MG IV ×2 (09:28→21:25)
--- NOTE | 2020-03-16 11:20 | PC.NURSE ---
Verbal order received to adjust weight based heparin protocol dosages to 297 lb. Adjustments made to paperwork, 2 nurse verification. Infusion rate remains at 36 ml/hr. Dr. Otoole also gave verbal order to time PTT and H&H for 1400. Nurse to continue to monitor.
[2020-03-16 14:17] LABS: Hemoglobin 10.5 g/dL (11.5-15.3)
[2020-03-16] MEDS: sodium chlor 0.9% + KCl 20 mEq 20 MEQ/1,000 ML BAG 50 MEQ IV (14:48)
[2020-03-16 14:53] LABS: Partial Thromboplastin Time 130.1 SECONDS (23.9-36.7)
[2020-03-16] MEDS: warfarin 3 mg Tablet 6 MG PO (15:59)
--- NOTE | 2020-03-16 19:06 | USCV_ITS ---
Simeon Jyothi Age: 59 Gender: F : 1960 Exam Date: 03/16/2020 07:16 Ordering Phys: Carlos Otoole MD Technologist: Renae Presley Exam Location: [facility] Indication: Bioprosthetic mitral valve BP: 109 / 80 HR: 95 Rhythm: Sinus Technical Quality: Technically difficult study MEASUREMENTS (Male / Female) Normal Values 2D ECHO LV Diastolic Diameter PLAX 4.7 cm 4.2 - 5.9 / 3.9 - 5.3 cm LV Systolic Diameter PLAX 3.0 cm LV Chamber Size 2.9 cm IVS Diastolic Thickness 1.1 cm 0.6 - 1.0 / 0.6 - 0.9 cm IVS Systolic Thickness 1.2 cm LVPW Diastolic Thickness 1.1 cm 0.6 - 1.0 / 0.6 - 0.9 cm LVPW Systolic Thickness 1.4 cm RV Chamber Size 1.8 cm LVOT Diameter 2.1 cm LV Ejection Fraction 2D Teich 65.9 % LV Ejection Fraction MOD 2C 64.2 % LV Ejection Fraction 2C AL 62.8 % LA Diameter 3.1 cm LA Width 3.7 cm LA Height 4.6 cm RA Width 2.5 cm RA Height 4.8 cm Aorta at Sinotubular Diameter 2.2 cm M-MODE LV Diastolic Diameter MM 4.1 cm 4.2 - 5.9 / 3.9 - 5.3 cm LV Systolic Diameter MM 2.5 cm LV Ejection Fraction MM Teich 70.4 % IVS Diastolic Thickness MM 1.1 cm 0.6 - 1.0 / 0.6 - 0.9 cm IVS Systolic Thickness MM 1.5 cm LVPW Diastolic Thickness MM 1.4 cm 0.6 - 1.0 / 0.6 - 0.9 cm LVPW Systolic Thickness MM 1.3 cm RV Diastolic Diameter MM 0.6 cm Aortic Annulus Diameter 2.6 cm LA Ao Ratio MM 1.5 DOPPLER AV Peak Velocity 139.3 cm/s LVOT Peak Velocity 110.0 cm/s AV Area Cont Eq vti 2.7 cm squared AV Area Cont Eq pk 2.7 cm squared MV Peak Velocity 197.0 cm/s MV Area PHT 5.0 cm squared MV E' Velocity 88.0 cm/s Mitral E to MV E' Ratio 14.2 Mitral E to LV E' Lateral Ratio 13.4 Mitral E to LV E' Septal Ratio 14.9 TV Peak E Velocity 60.0 cm/s Right Atrial Pressure 3.0 mmHg PV Peak Velocity 67.0 cm/s RV Acceleration Time 0.1 s RV Ejection Time 0.2 s RV AcT/ET 0.3 FINDINGS Left Ventricle Normal left ventricular size and systolic function, EF 62 %. No regional wall motion abnormalities. Right Ventricle Normal right ventricular size and systolic function. Right Atrium Normal right atrial size. Left Atrium Mildly increased left atrial size. Mitral Valve Bioprosthetic valve the mitral position appears to be well- seated. Peak velocity across the mitral valve was 2.0 m/s. Aortic Valve Thickened aortic valve. Trace aortic valve regurgitation. Tricuspid Valve Trace tricuspid valve regurgitation. Pulmonic Valve Pulmonic valve not well visualized. Pericardium No pericardial effusion. Aorta Normal aortic annulus size. CONCLUSIONS Normal left ventricular size and systolic function, EF 62 %. Bioprosthetic valve the mitral position appears to be well- seated. Peak velocity across the mitral valve was 2.0 m/s. Thickened aortic valve. Trace aortic valve regurgitation. Trace tricuspid valve regurgitation. No regional wall motion abnormalities. There is no pericardial effusion. There are no intracardiac masses. Compared to the previous study from 09/04/2016, there may not be a [id number] Dr Melvin Santos MD FACC (Electronically Signed) Final Date: 16 March 2020 14:14 S
--- NOTE | 2020-03-16 19:12 | PC.NURSE ---
Shift Summary Rest of shift uneventful. Patient up ad nikhil to bathroom and around room, tolerating activity well. No further needs identified at this time. Report given to oncoming nurse.
[2020-03-16] MEDS: temazepam 15 mg Capsule PO (21:29)
[2020-03-16 21:51] LABS: Partial Thromboplastin Time 139.7 SECONDS (23.9-36.7)
[2020-03-17] VITALS (8 sets, daily range): BP systolic 123–150; BP diastolic 66–88; PULSE 82–100; RESP 15–24; TEMP 36.4–36.8; O2SAT 90–96
[2020-03-17] MEDS: metroNIDAZOLE IV 500 MG/100 ML PREMIX 100 MG IV (03:07)
[2020-03-17] MEDS: heparin drip 25,000 UNIT/500 ML PREMIX 20 UNIT IV (05:22)
[2020-03-17 05:51] LABS: Basophils % 0.8 %; Eosinophils # 0.2 10^3/uL (0.0-0.8); Hemoglobin 10.2 g/dL (11.5-15.3); Lymphocytes # 1.2 10^3/uL (0.8-4.8); Lymphocytes % 24.9 %; Mean Corpuscular HGB Conc 30.9 g/dL (30.0-36.0); Mean Corpuscular Volume 97.1 fL (81-99); Mean Platelet Volume 8.8 fL (7.4-10.4); Monocytes # 0.5 10^3/uL (0.2-0.9); Monocytes % 10.7 %; Neutrophils # 2.78 10^3/uL (1.8-7.7); Neutrophils % 58.3 %; Nucleated Red Blood Cells % 0 %; Platelet Count 234 10^3/cmm (130-400); Red Cell Distribution Width 13.6 % (12.1-15.1); White Blood Count 4.8 10^3/uL (4.0-10.0)
[2020-03-17 06:36] LABS: Alanine Aminotransferase 13 U/L (0-33); Albumin Level 3.1 g/dL (3.5-5.2); Alkaline Phosphatase 107 IU/L (35-105); Aspartate Amino Transferase 17 U/L (0-32); Blood Urea Nitrogen 10 mg/dL (6-20); Calcium 8.8 mg/dL (8.5-10.5); Carbon Dioxide 25 mmol/L (22-29); Chloride 105 mmol/L (98-107); Glucose 106 mg/dL (65-115); Osmolality Calculated 283 mOsm/kg (285-295); Sodium 137 mmol/L (136-145); Total Bilirubin 0.5 mg/dL (0.15-1.2); Total Protein 6.1 g/dL (6.6-8.7)
[2020-03-17 06:50] LABS: INR 1.17 (0.8-1.2)
--- NOTE | 2020-03-17 07:41 | PM.PN ---
Subjective Subjective: Interval history: The patient says she still feels about the same. She does not have any pain unless she moves around. She had a normal bowel movement yesterday. Vitals/I&O/Wt Last Vital Signs Temp 97.9 F 03/17/20 04:00 Pulse 85 03/17/20 04:00 Resp 18 03/17/20 04:00 BP 125/66 03/17/20 04:00 Pulse Ox 90 03/17/20 04:00 03/16/20 03/17/20 03/17/20 22:59 06:59 14:59 Intake Total 2903.800 / 4556.667 192.867 / 4556.667 Balance 2903.800 / 4556.667 192.867 / 4556.667 Weight last 48 hrs Weight 297 lb 9 oz Weight 298 lb 14.4 oz Weight 298 lb Physical Exam Narrative: EXAM NARRATIVE: Upon entering the patient's room, she was sleeping but was easily arousable. The abdomen remains with scattered tenderness today. Data : 03/17/20 05:23 03/17/20 05:23 Micro: Microbiology 03/16/20 11:58 MRSA Culture - Final Nose 03/16/20 11:58 Stool Lactoferrin - Final Stool C.difficile Toxin B Gene (PCR) - Final Occult Blood (FIT) - Final A&P Assessment and plan (1) Enteritis: CT reviewed. There is no question that the patient appears to have a focal area of small bowel enteritis in the left lower quadrant. Interestingly, this is not where she seems to be tender. The patient continues on Ciprofloxaclin and metronidazole. White blood cell count remains normal and the patient remains afebrile. Status: Acute (2) Hemorrhagic ascites: The patient has a small amount of fluid in the pelvis that the radiologist thinks may have some blood within it. Obviously this is somewhat hard to know with any certainty but is a possibility given the patient's recent supratherapeutic INR. I do not anticipate that this is going to be any kind of an issue as the INR is brought down. Status: Acute Attestations Medical Necessity Statement*: See admitting service's notation. Coding Level of Care Code Acute Event Set Up Specialist for [facility] Diagnoses Enteritis K52.9 Hemorrhagic ascites R18.8
--- NOTE | 2020-03-17 07:44 | P.PN_ITS ---
Subjective Subjective: Interval history: No events overnight. Has remained hemodynamically stable. Patient states she is feeling the same. Denies nausea, vomiting, headache, dizziness. Had one bowel movement yesterday which is well formed without any bleeding. Tolerating clear liquid diet well. Vitals/I&O/Wt Last Vital Signs Temp 98.2 F 03/17/20 07:39 Pulse 100 03/17/20 07:39 Resp 16 03/17/20 07:39 BP 135/79 03/17/20 07:39 Pulse Ox 95 03/17/20 07:39 03/16/20 03/17/20 03/17/20 22:59 06:59 14:59 Intake Total 2903.800 / 4363.800 192.867 / 4556.667 Balance 2903.800 / 4363.800 192.867 / 4556.667 Weight last 48 hrs Weight 134.972 kg Weight 135.579 kg Weight 135.171 kg Physical Exam Narrative: EXAM NARRATIVE: General: No acute distress, AO x3, morbidly obese, HEENT: PERRLA, pupils bilaterally equal and reactive Chest: Normal vesicular breath sounds, no added sounds, equal good air entry bilaterally CVS: S1-S2 regular, no murmurs, no tachycardia, no gallops, no rubs, mitral click heard Abdomen: Soft, tender in right lower quadrant, no flank tenderness, no organomegaly, bowel sounds present Neuro: No focal deficits, no facial deformity, AO x3, power 5/5 in all limbs Data : 03/17/20 05:23 03/17/20 05:23 Micro: Microbiology 03/16/20 11:58 MRSA Culture - Final Nose 03/16/20 11:58 Stool Lactoferrin - Final Stool C.difficile Toxin B Gene (PCR) - Final Occult Blood (FIT) - Final A&P Assessment and plan (1) Supratherapeutic INR: Status: Acute (2) Coagulopathy: Status: Acute (3) Hemorrhagic ascites: Status: Acute (4) Enteritis: Status: Acute (5) Hx of mitral valve replacement: Status: Acute (6) Anxiety and depression: Status: Acute (7) Smoker: Discussed in detail regarding need of smoking cessation for patient. She states she is trying to quit. Nicotine patch. Status: Acute Additional A&P Information 51-year-old female presented to the ER because of mixup in her Coumadin dose along with right flank pain found to have an INR of [address] scan concerning for enteritis and possible hemorrhagic ascites. Supratherapeutic INR: Goal INR 2.5-3.5 for mechanical mitral valve. INR overcorrected with vitamin K given in the ER. 1.1 today morning. Continue with heparin drip I will transition her over to Coumadin and once her INR reaches near goal can stop the heparin drip at that point. Coumadin 10 mg oral today. Check INR daily. For now continue heparin until INR starts coming in goal. Enteritis/hemorrhagic ascites: Appreciate Dr. Schroeder's recommendations. Started on clear liquid diet. We will continue to monitor. Stool studies negative. Switch over to oral Cipro and Flagyl. Will require 5-day course. Day 3 today. Advance diet to full liquid today. For hemorrhagic cystitis: Trend hemoglobin daily for now as has remained stable till now. Iron panel suggestive of iron deficiency anemia. Continue with oral iron supplementation. LORETTA: Creatinine 1.2 yesterday trending down to 1.1 today. We do not have baseline. Medical reconciliation done for nephrotoxic drugs. Mechanical mitral valve cardiogram done shows an EF of 62% with normal positioning and normal functioning bioprosthetic mitral valve with peak velocity across the valve of 2 mm/s Anxiety: Medication list reconciled with patient. Continue on multiple anxiety medications which she takes at home including clonazepam 1 mg twice daily, duloxetine 60 mg twice daily, BuSpar 15 mg twice daily, temazepam 15 mg at bedtime. Hypertension: Goal blood pressure less than 140/90 mmHg. Patient takes metoprolol 50 mg twice daily at home. For now will decrease to 25 mg twice daily. Full code. Clear liquid diet. Protonix for PUD prophylaxis Started on heparin drip. Attestations Medical Necessity Statement*: Needs further hospitalization while the transition from heparin drip to oral Coumadin to achieve a goal INR of 2.5-3.54 mechanical mitral valve setting of enteritis and hemorrhagic ascites while mon itoring hemoglobin regularly. Time Spent in Patient Care: Greater than 35 minutes (>than 50% of time spent in counselling and/or direct pt care on unit) . Coding Level of Care Code Acute Joint Cutter Machine for Bertin Fwd Diagnoses Supratherapeutic INR R79.1 Coagulopathy D68.9 Hemorrhagic ascites R18.8 Enteritis K52.9 Hx of mitral valve replacement Z95.2 Anxiety and depression F41.9; F32.9 Smoker F17.200
[2020-03-17] MEDS: ciprofloxacin 500 mg Tablet PO ×2 (08:58→17:59)
[2020-03-17] MEDS: CLONazepam 1 mg Tablet PO ×2 (08:58→17:59)
[2020-03-17] MEDS: duloxetine 60 mg Capsule PO ×2 (08:58→17:59)
[2020-03-17] MEDS: pantoprazole 40 mg SDV IVP (08:59)
[2020-03-17] MEDS: metoprolol tartrate 25 mg Tablet PO ×2 (08:59→18:00)
[2020-03-17] MEDS: metroNIDAZOLE 500 MG Tablet PO ×3 (08:59→19:55)
[2020-03-17 14:19] LABS: Partial Thromboplastin Time 50.6 SECONDS (23.9-36.7)
--- NOTE | 2020-03-17 14:35 | PC.NURSE ---
Lab PTT resulted. Heparin drip titrated per protocol.
[2020-03-17] MEDS: warfarin 10 mg Tablet PO (14:38)
[2020-03-17] MEDS: heparin 5,000 unit/mL INJ 1 mL IV (14:38)
[2020-03-17] MEDS: ferrous gluconate 324 mg Tablet PO (17:59)
[2020-03-17] MEDS: temazepam 15 mg Capsule PO (19:53)
[2020-03-17] MEDS: lidocaine 2% viscous 15 ML, aluminum-mag hydrox-simethicon 30 ML, sucralfate oral liq 1 GM PO (19:54)
[2020-03-17] MEDS: HYDROmorphone 1 mg/mL INJ 1 mL IVP (19:54)
--- NOTE | 2020-03-17 19:58 | PC.NURSE ---
Patient is asking for something for abdominal pain. Dr. Babin notified. Patient states I've been having abdominal pain and they've been giving me Morphine for it. It appears the Morphine ordered has been discontinued.
[2020-03-17 21:36] LABS: Partial Thromboplastin Time 66.5 SECONDS (23.9-36.7)
[2020-03-18 03:04] VITALS: BP 122/69; PULSE 80; RESP 19; TEMP 36.6; O2SAT 94
--- NOTE | 2020-03-18 04:44 | PC.NURSE ---
Patient has no complaints at this time. Will monitor.
[2020-03-18 04:56] LABS: Basophils # 0.1 10^3/uL (0.0-0.1); Basophils % 1.1 %; Eosinophils # 0.2 10^3/uL (0.0-0.8); Eosinophils % 4.5 %; Hematocrit 31.6 % (37.0-47.0); Hemoglobin 9.9 g/dL (11.5-15.3); Lymphocytes # 1.6 10^3/uL (0.8-4.8); Lymphocytes % 33.3 %; Mean Corpuscular HGB Conc 31.3 g/dL (30.0-36.0); Mean Corpuscular Hemoglobin 29.8 pg (28.0-34.0); Mean Corpuscular Volume 95.2 fL (81-99); Mean Platelet Volume 8.8 fL (7.4-10.4); Monocytes # 0.5 10^3/uL (0.2-0.9); Monocytes % 10.4 %; Neutrophils # 2.31 10^3/uL (1.8-7.7); Nucleated Red Blood Cells % 0 %; Platelet Count 263 10^3/cmm (130-400); Red Blood Count 3.32 10^6/uL (4.1-5.3); Red Cell Distribution Width 13.3 % (12.1-15.1); White Blood Count 4.7 10^3/uL (4.0-10.0)
[2020-03-18 05:11] LABS: Partial Thromboplastin Time 61.8 SECONDS (23.9-36.7)
[2020-03-18] MEDS: heparin drip 25,000 UNIT/500 ML PREMIX 23 UNIT IV (05:15)
[2020-03-18 05:21] LABS: INR 1.12 (0.8-1.2)
[2020-03-18 05:23] LABS: Alanine Aminotransferase 13 U/L (0-33); Alkaline Phosphatase 105 IU/L (35-105); Anion Gap 10.7 (5-19); Aspartate Amino Transferase 21 U/L (0-32); Blood Urea Nitrogen 8 mg/dL (6-20); Calcium 8.8 mg/dL (8.5-10.5); Carbon Dioxide 27 mmol/L (22-29); Chloride 105 mmol/L (98-107); Globulin 3.1 g/dL (1.3-4.6); Glucose 98 mg/dL (65-115); Osmolality Calculated 286 mOsm/kg (285-295); Potassium 3.7 mmol/L (3.5-5.1); Sodium 139 mmol/L (136-145); Total Bilirubin 0.4 mg/dL (0.15-1.2); Total Protein 6.1 g/dL (6.6-8.7)
[2020-03-18 07:16] VITALS: BP 133/88; PULSE 91; RESP 22; TEMP 36.6; O2SAT 96
--- NOTE | 2020-03-18 08:12 | P.PN_ITS ---
Subjective Subjective: Interval history: The patient apparently got a GI cocktail last night and says that that helped her considerably. She still having small loose stools. She does not care for the clear liquid diet and is requesting some different food. Vitals/I&O/Wt Last Vital Signs Temp 97.9 F 03/18/20 07:16 Pulse 91 03/18/20 07:16 Resp 22 H 03/18/20 07:16 BP 133/88 03/18/20 07:16 Pulse Ox 96 03/18/20 07:16 03/17/20 03/18/20 03/18/20 22:59 06:59 14:59 Intake Total 500 / 2080.000 615.333 / 2080.000 Balance 500 / 2080.000 615.333 / 2080.000 Weight last 48 hrs Weight 297 lb Weight 297 lb 9 oz Physical Exam Narrative: EXAM NARRATIVE: The patient is becoming less tender daily on my exams. Data : 03/18/20 04:38 03/18/20 04:38 A&P Assessment and plan (1) Enteritis: CT on presentation reviewed. There is no question that the patient appears to have a focal area of small bowel enteritis in the left lower quadrant. Interestingly, this is not where she seems to be tender. The patient continues on Ciprofloxaclin and metronidazole. White blood cell count remains normal and the patient remains afebrile. I am going to advance the patient to a soft diet and see how she does. Status: Acute (2) Hemorrhagic ascites: The patient had a small amount of fluid in the pelvis on her initial CAT scan that the radiologist thought may have some blood within it. Obviously this is somewhat hard to know with any certainty but is a possibility given the patient's recent supratherapeutic INR. Status: Acute Attestations Medical Necessity Statement*: See admitting service's notation. Coding Level of Care Code Acute Senior Hadoop Developer for Bertin Felix Diagnoses Enteritis K52.9 Hemorrhagic ascites R18.8
[2020-03-18] MEDS: metroNIDAZOLE 500 MG Tablet PO (08:27)
[2020-03-18] MEDS: ferrous gluconate 324 mg Tablet PO (08:27)
[2020-03-18] MEDS: ciprofloxacin 500 mg Tablet PO (08:27)
[2020-03-18] MEDS: CLONazepam 1 mg Tablet PO (08:27)
[2020-03-18] MEDS: duloxetine 60 mg Capsule PO (08:28)
[2020-03-18] MEDS: metoprolol tartrate 25 mg Tablet PO (08:28)
[2020-03-18] MEDS: pantoprazole 40 mg SDV IVP (08:45)
--- NOTE | 2020-03-18 09:43 | PC.RESP ---
SMOKING CESSATION INFORMATION SENT TO PATIENT.
--- NOTE | 2020-03-18 10:56 | DCPLANNER ---
IMM completed on 03/18/2020 @ 1038. Copy of rights given to pt.
[2020-03-18 11:48] LABS: Partial Thromboplastin Time 54.9 SECONDS (23.9-36.7)
[2020-03-18 12:00] VITALS: BP 143/81; PULSE 81; RESP 21; TEMP 36.7; O2SAT 95
[2020-03-18] MEDS: heparin 5,000 unit/mL INJ 1 mL IV (12:50)
--- NOTE | 2020-03-18 14:53 | PM.DCS ---
Discharge Providers Date of Admission: 03/15/20 18:23 Date of Discharge: March 18, 2020 Attending Provider at Admission: Lauren Arnett MD Attending Provider at Discharge: Elver Veloz MD Primary Care Provider: Elver Veloz MD Diagnoses at Discharge Discharge Diagnosis (1) Enteritis: Status: Acute (2) Hemorrhagic ascites: Status: Acute Reason for Visit Reason for Visit: sent from doc/ Hospital Course Discharge Summary: Patient was admitted for abdominal pain and enteritis seen on CT scan. Had some high INR of 8. Placed on IV antibiotics. Symptoms resolved. Anxious for DC. Placed on Lovenox while coumadin getting therapuetic again. Discharge Data Data Completed and Pending: Completed Studies During Hospitalization Category Date Time Status CT abdomen pelvis w con* [id number] Stat Cat Scan 03/15/20 16:15 Completed CV echo complete* [id number] Urgent Ultrasound 03/16/20 19:06 Completed Pending at discharge Category Date Time Status Enteric Bacterial Panel by PCR Rout ine Lab 03/18/20 14:30 Ordered Enteric Parasite Panel by PCR Routi ne Lab 03/18/20 14:30 Ordered Platelet Count Q2 D Lab 03/20/20 04:00 Ordered Prothrombin Time INR AM LABS Lab 03/19/20 04:00 Ordered Labs from last 24 hours 03/18/20 03/18/20 03/18/20 11:31 04:38 04:38 WBC 4.7 RBC 3.32 L Hgb 9.9 L Hct 31.6 L MCV 95.2 MCH 29.8 MCHC 31.3 RDW 13.3 Plt Count 263 MPV 8.8 Neut % (Auto) 49.0 Lymph % (Auto) 33.3 [place] % (Auto) 10.4 Eos % (Auto) 4.5 Baso % (Auto) 1.1 Neut # (Auto) 2.31 Lymph # (Auto) 1.6 [place] # (Auto) 0.5 Eos # (Auto) 0.2 Baso # (Auto) 0.1 Nucleated RBC % (a uto) 0 Nucleated RBCs # 0.0 PT INR APTT 54.9 H Sodium 139 Potassium 3.7 Chloride 105 Carbon Dioxide 27 Anion Gap 10.7 BUN 8 Creatinine 1.1 H GFR Calculation 51.0 L Glucose 98 Calculated Osmolal ity 286 Calcium 8.8 Total Bilirubin 0.4 AST 21 ALT 13 Alkaline Phosphata se 105 Total Protein 6.1 L Albumin 3.0 L Globulin 3.1 03/18/20 03/18/20 03/17/20 04:38 04:38 20:31 WBC RBC Hgb Hct MCV MCH MCHC RDW Plt Count MPV Neut % (Auto) Lymph % (Auto) [place] % (Auto) Eos % (Auto) Baso % (Auto) Neut # (Auto) Lymph # (Auto) [place] # (Auto) Eos # (Auto) Baso # (Auto) Nucleated RBC % (a uto) Nucleated RBCs # PT 14.80 INR 1.12 APTT 61.8 H 66.5 H Sodium Potassium Chloride Carbon Dioxide Anion Gap BUN Creatinine GFR Calculation Glucose Calculated Osmolal ity Calcium Total Bilirubin AST ALT Alkaline Phosphata se Total Protein Albumin Globulin Vitals: Last Vital Signs Temp 98.0 F 03/18/20 12:00 Pulse 81 03/18/20 12:00 Resp 21 H 03/18/20 12:00 BP 143/81 03/18/20 12:00 Pulse Ox 95 03/18/20 12:00 Discharge Plan Discharge Patient Disposition: Home Condition: Stable Prescriptions: New Lovenox 40 mg/0.4 mL syringe 40 mg SUBCUT DAILY Qty: 1.2 RF: 1 Continued cyclobenzaprine 10 mg Tablet 10 mg PO TID PRN (Reason: Muscle Spasm) RF: 0 atorvastatin 20 mg Tablet 20 mg PO DAILY RF: 0 Miralax 17 gram Powder In Packet 17 g PO DAILY RF: 0 metoprolol succinate 50 mg Tablet Extended Release 24 Hr 50 mg PO BID RF: 0 hydrocodone-acetaminophen 5-325 mg Tablet 1 - 2 tab PO TID PRN (Reason: Pain) RF: 0 warfarin 10 mg Tablet 8 mg PO DAILY RF: 0 clonazepam 1 mg Tablet 1 mg PO BID RF: 0 aspirin 81 mg Tablet,Delayed Release (Dr/Ec) 81 mg PO DAILY RF: 0 famotidine 20 mg Tablet 20 mg PO DAILY RF: 0 temazepam 15 mg Capsule 15 mg PO BEDTIME RF: 0 cranberry 400 mg Capsule 400 mg PO DAILY RF: 0 Colace 100 mg Capsule 250 mg PO DAILY RF: 0 gabapentin 100 mg Capsule 100 mg PO QID RF: 0 Premarin 0.3 mg Tablet 0.3 mg PO DAILY RF: 0 buspirone 15 mg Tablet 15 mg PO BID RF: 0 duloxetine 60 mg Capsule,Delayed Release(Dr/Ec) 60 mg PO BID RF: 0 Discharge Orders: Discharge Order (Routine); Ordered 03/18/20 Ordered By: Elver Veloz Referrals: Elver Veloz MD [Primary Care Provider] - Discharge Diet: Full LIquid Discharge Activity: Resume usual activity Activity Restrictions/Additional Instructions: - resume your home medications the same - Coumadin 8 mg daily. Take Lovenox starting tomorrow and for 3 days - Follow up with Dr. Veloz in 2-3 days. - Liquid diet until seen in clinic. - Call if worsening pain Discharge Attestations Time Spent in Discharge Care*: greater than 30 min Quality Metrics Clinical Quality Measures During this hospital stay, did patient experience: None Coding Level of Care Code Acute Rotary Bar Operator for Lynnetteg Gregoryd Diagnoses Enteritis K52.9 Hemorrhagic ascites R18.8
[2020-03-18 14:55] VITALS: BP 136/66; BP 143/81; PULSE 81; PULSE 82; RESP 21; TEMP 36.3; TEMP 36.7; O2SAT 95; O2SAT 96
== END 2020-03-18 15:30 | disposition home or self-care (01) | DRG 918 ==
LOC: ER 18:20 → CSU 18:59
PROVIDERS: Emergency Medicine; Nurse Practitioner Family; Student in an Organized Health Care Education/Training Program; Admitting Provider Student in an Organized Health Care Education/Training Program; PCP Family Medicine; Visit Provider Family Medicine
DX: T45.511A Poisoning by anticoagulants, accidental (unintentional), initial encounter (principal); R18.8 Other ascites; Z95.2 Presence of prosthetic heart valve; Z79.01 Long term (current) use of anticoagulants; F41.8 Other specified anxiety disorders; F17.210 Nicotine dependence, cigarettes, uncomplicated; M79.7 Fibromyalgia; Z98.1 Arthrodesis status; E78.5 Hyperlipidemia, unspecified; Z96.651 Presence of right artificial knee joint; K52.9 Noninfective gastroenteritis and colitis, unspecified; I10 Essential (primary) hypertension; Z79.891 Long term (current) use of opiate analgesic
CPT/HCPCS: 12345; 36415; 74177; 80053; 81001; 82274; 83540; 83550; 83605; 83630; 83690; 83735; 83880; 84100; 84443; 85014; 85018; 85025; 85610; 85730; 87493; 87506; 87641; 90471; 90686; 93306; 94664; 96375; 99282; C9113; J0744; J1170; J1644; J2060; J2270; J2405; J3430; Q9967; S0030

== ENCOUNTER 2020-03-26 11:43 | Outpatient (CLI) | payer MEDICARE, SELFPAY ==
--- NOTE | 2020-03-26 11:52 | MM_ITS ---
WS: [id number] DIAGNOSTIC BILATERAL DIGITAL MAMMOGRAM WITH CAD LEFT breast ultrasound, limited HISTORY: BREAST MASS COMPARISON: 09/06/2019, 03/01/2019, 02/22/2019 and 09/06/2019 TECHNIQUE: Bilateral craniocaudad, mediolateral oblique, and mediolateral views are submitted. Spot c ompression LEFT CC and MLO. Computer aided detection utilized. Breast composition: There are scattered areas of fibroglandular density. Numerous calcifications scat tered in each breast. There is a lobulated mass in the medial RIGHT breast near 3:00 which has been p resent on multiple prior examinations and is stable. Previously described asymmetry in the central LE FT breast has become less apparent. LEFT breast ultrasound, limited. Ultrasound is directed to the 12-1 o'clock axis of the LEFT breast. As compared to the prior ultrasou nd the cystic and complex cystic nodules at 12 and 1:00 are stable. Hypoechoic mass at 12:00, 3 cm f rom the nipple measures 5 x 3 x 6 mm. MM/[place] [id number] IMPRESSION: BI-RADS: 2-Benign FOLLOW UP: 1 Year Follow-up
== END 2020-03-26 11:44 | disposition home or self-care (01) ==
LOC: RADSHAW 11:50
PROVIDERS: PCP Family Medicine; Visit Provider Family Medicine
DX: N63.15 Unspecified lump in the right breast, overlapping quadrants (principal)
CPT/HCPCS: 76642; 77066

== ENCOUNTER → 2020-04-01 11:08 | Outpatient (BNVA) | payer MEDICARE, SELFPAY | PROVIDERS: PCP Family Medicine; Visit Provider Urology | DX: R31.9 Hematuria, unspecified (principal) | CPT/HCPCS: 81003; 88112 ==

== ENCOUNTER 2020-05-22 14:10 | Outpatient (CLI) | payer MEDICARE, SELFPAY ==
--- NOTE | 2020-05-22 14:20 | XRR_ITS ---
PROCEDURE INFORMATION: Exam: XR Chest, 2 Views Exam date and time: 05/22/2020 2:24 PM Age: 59 years old Clinical indication: Dyspnea; Prior surgery; Surgery type: Valve TECHNIQUE: Imaging protocol: XR of the chest Views: 2 views. COMPARISON: CR Chest 1 [place] [id number] 03/28/2014 11:35 AM FINDINGS: Lungs: Unremarkable. No consolidation. Pleural space: Unremarkable. No pleural effusion. No pneumothorax. Heart/Mediastinum: Unremarkable. No cardiomegaly. There is a metallic cardiac valve prosthesis in place. Bones/joints: Metallic sternotomy wires are in place. XR/XR chest 2V* [id number] IMPRESSION: 1. No acute findings. 2. Status post sternotomy
== END 2020-05-22 14:11 | disposition home or self-care (01) ==
PROVIDERS: PCP Family Medicine; Visit Provider Family Medicine
DX: R06.00 Dyspnea, unspecified (principal); I10 Essential (primary) hypertension; E78.5 Hyperlipidemia, unspecified
CPT/HCPCS: 71046

== ENCOUNTER 2020-06-20 14:00 | Outpatient (CLI) | payer MEDICARE, SELFPAY ==
--- NOTE | 2020-06-20 14:38 | PFTS_ITS ---
Date of Study:06/20/20 Date of Dictation: 06/27/2020 MECHANICS: Forced vital capacity (FVC) is normal. Forced expiratory volume in one second (FEV1) is normal. FEV1/FVC is normal. FLOW VOLUME LOOP: Mild scooping of end expiratory limb suggestive of terminal airway obstruction. . LUNG VOLUMES: Total lung capacity (TLC) is normal. Residual volume (RV) is increased suggestive of moderate air trapping.. DIFFUSING CAPACITY FOR CARBON MONOXIDE: Normal . INTERPRETATION: The spirometry and gas transfer normal. Increased RV suggestive of moderate air trapping. Please correlate clinically. MTDD
== END 2020-06-20 14:01 | disposition home or self-care (01) ==
LOC: RT 14:05
PROVIDERS: PCP Family Medicine; Visit Provider Family Medicine
DX: R06.00 Dyspnea, unspecified (principal); I10 Essential (primary) hypertension; E78.5 Hyperlipidemia, unspecified
CPT/HCPCS: 94010; 94726; 94729

== ENCOUNTER → 2021-09-30 00:01 | Outpatient (BNVA) | payer MEDICARE, SELFPAY | PROVIDERS: PCP Family Medicine; Visit Provider Family Medicine | DX: I10 Essential (primary) hypertension (principal); F32.A Depression, unspecified; M19.90 Unspecified osteoarthritis, unspecified site; E78.5 Hyperlipidemia, unspecified; Z78.9 Other specified health status; Z51.81 Encounter for therapeutic drug level monitoring | CPT/HCPCS: 85610 ==

== ENCOUNTER → 2021-11-06 13:30 | Outpatient (BNVA) | payer MEDICARE, SELFPAY | PROVIDERS: PCP Family Medicine; Visit Provider Family Medicine | DX: I10 Essential (primary) hypertension (principal); M19.90 Unspecified osteoarthritis, unspecified site; F32.A Depression, unspecified; E78.5 Hyperlipidemia, unspecified; Z79.01 Long term (current) use of anticoagulants; Z51.81 Encounter for therapeutic drug level monitoring | CPT/HCPCS: 85610 ==

== ENCOUNTER → 2021-11-17 15:03 | Outpatient (BNVA) | payer MEDICARE, SELFPAY | PROVIDERS: PCP Family Medicine; Visit Provider Family Medicine | DX: I10 Essential (primary) hypertension (principal); M19.90 Unspecified osteoarthritis, unspecified site; F32.A Depression, unspecified; E78.5 Hyperlipidemia, unspecified; Z79.01 Long term (current) use of anticoagulants; Z51.81 Encounter for therapeutic drug level monitoring | CPT/HCPCS: 85610 ==

== ENCOUNTER → 2021-12-25 14:10 | Outpatient (BNVA) | payer MEDICARE, SELFPAY | PROVIDERS: PCP Family Medicine; Visit Provider Family Medicine | DX: I10 Essential (primary) hypertension (principal); I48.91 Unspecified atrial fibrillation | CPT/HCPCS: 85610 ==

== ENCOUNTER 2022-01-20 12:54 | Outpatient (CLI) | payer MEDICARE, SELFPAY ==
--- NOTE | 2022-01-20 12:59 | MM_ITS ---
WS: [id number] BILATERAL 3D TOMOSYNTHESIS DIGITAL SCREENING MAMMOGRAPHY WITH CAD CLINICAL INFORMATION: screening HISTORY: Screening mammogram. No current complaints. COMPARISON: March 26, 2020 TECHNIQUE: Bilateral CC and MLO views. FINDINGS: Scattered fibroglandular densities bilaterally. Vascular calcification. Dystrophic and lucent centere d calcifications. Slightly spiculated 13 mm lesion outer LEFT breast best seen on the cc view. Recomm end LEFT breast diagnostic mammography and ultrasound in further evaluation. RIGHT breast is unremarkable and unchanged. MM/[place] [id number] IMPRESSION: BI-RADS: 0-Incomplete: Need additional imaging evaluation FOLLOW UP: Need Additional Imaging Recommend LEFT breast diagnostic mammography and ultrasound in further evaluati on.
== END 2022-01-20 12:55 | disposition home or self-care (01) ==
LOC: RAD 12:55
PROVIDERS: PCP Family Medicine; Visit Provider Family Medicine
DX: Z12.31 Encounter for screening mammogram for malignant neoplasm of breast (principal)
CPT/HCPCS: 77063; 77067

== ENCOUNTER → 2022-01-23 09:23 | Outpatient (BNVA) | payer MEDICARE, SELFPAY | PROVIDERS: PCP Family Medicine; Visit Provider Family Medicine | DX: E78.5 Hyperlipidemia, unspecified (principal); I05.9 Rheumatic mitral valve disease, unspecified | CPT/HCPCS: 85610 ==

== ENCOUNTER 2022-02-11 14:01 | Outpatient (CLI) | payer MEDICARE, SELFPAY ==
--- NOTE | 2022-02-11 14:15 | MM_ITS ---
WS: [id number] LEFT 3D TOMOSYNTHESIS DIGITAL MAMMOGRAPHY WITH CAD CLINICAL INFORMATION: abnormal mammo COMPARISON: January 20, 2022 TECHNIQUE: 3 views of the left breast were obtained. FINDINGS: The left breast is composed of heterogeneous fibroglandular density tissue, which can limit the detec tion of small underlying mass lesions. Previously described slightly spiculated 13 mm asymmetric dens ity upper outer LEFT breast best seen on the cc view is again visualized. Ultrasound described below. ULTRASOUND BREAST LEFT TECHNIQUE: Ultrasound left breast focused area of concern. CLINICAL INFORMATION: abnormal mammo FINDINGS: Ultrasound upper outer quadrant LEFT breast. The 2:00 position 5 cm from the nipple is an incidental cyst measuring 5 x 6.3 mm. No other suspicious abnormalities. No lesions to target for biopsy. Recomm end return to annual screening mammography. MM/[place] [id number] IMPRESSION: BI-RADS: 2-Benign FOLLOW UP: 1 Year Follow-up Recommend return to annual screening mammography.
== END 2022-02-11 14:02 | disposition home or self-care (01) ==
LOC: RAD 14:02
PROVIDERS: PCP Family Medicine; Visit Provider Family Medicine
DX: N60.02 Solitary cyst of left breast (principal); R92.8 Other abnormal and inconclusive findings on diagnostic imaging of breast
CPT/HCPCS: 76642; 77061

== ENCOUNTER → 2022-02-19 10:55 | Outpatient (BNVA) | payer MEDICARE, SELFPAY | PROVIDERS: PCP Family Medicine; Visit Provider Family Medicine | DX: E78.5 Hyperlipidemia, unspecified (principal); I05.9 Rheumatic mitral valve disease, unspecified | CPT/HCPCS: 85610 ==

== ENCOUNTER → 2022-03-10 14:47 | Outpatient (BNVA) | payer MEDICARE, SELFPAY | PROVIDERS: PCP Family Medicine; Visit Provider Family Medicine | DX: E78.5 Hyperlipidemia, unspecified (principal); I05.9 Rheumatic mitral valve disease, unspecified | CPT/HCPCS: 85610 ==

== ENCOUNTER → 2022-03-31 11:34 | Outpatient (BNVA) | payer MEDICARE, SELFPAY | PROVIDERS: PCP Family Medicine; Visit Provider Family Medicine | DX: E78.5 Hyperlipidemia, unspecified (principal); I05.9 Rheumatic mitral valve disease, unspecified; M79.7 Fibromyalgia | CPT/HCPCS: 85610 ==

== ENCOUNTER → 2022-04-08 08:09 | Outpatient (BNVA) | payer MEDICARE, SELFPAY | PROVIDERS: PCP Family Medicine; Visit Provider Family Medicine | DX: I10 Essential (primary) hypertension (principal); E78.5 Hyperlipidemia, unspecified; F41.9 Anxiety disorder, unspecified; F32.9 Major depressive disorder, single episode, unspecified; M79.7 Fibromyalgia; I05.9 Rheumatic mitral valve disease, unspecified | CPT/HCPCS: 80053; 80061; 83880; 85025 ==

== ENCOUNTER → 2022-05-01 11:01 | Outpatient (BNVA) | payer MEDICARE, SELFPAY | PROVIDERS: PCP Family Medicine; Visit Provider Family Medicine | DX: E78.5 Hyperlipidemia, unspecified (principal); M79.7 Fibromyalgia; I05.9 Rheumatic mitral valve disease, unspecified | CPT/HCPCS: 85610 ==

== ENCOUNTER → 2022-06-15 09:48 | Outpatient (BNVA) | payer MEDICARE, SELFPAY | PROVIDERS: PCP Family Medicine; Visit Provider Family Medicine | DX: I05.9 Rheumatic mitral valve disease, unspecified (principal); E78.5 Hyperlipidemia, unspecified; M79.7 Fibromyalgia; Z95.2 Presence of prosthetic heart valve | CPT/HCPCS: 85610 ==

== ENCOUNTER → 2022-08-06 11:08 | Outpatient (BNVA) | payer MEDICARE, SELFPAY | PROVIDERS: PCP Family Medicine; Visit Provider Family Medicine | DX: I05.9 Rheumatic mitral valve disease, unspecified (principal); Z95.2 Presence of prosthetic heart valve; Z79.01 Long term (current) use of anticoagulants | CPT/HCPCS: 85610 ==

== ENCOUNTER → 2022-09-07 14:03 | Outpatient (BNVA) | payer MEDICARE, SELFPAY | PROVIDERS: PCP Family Medicine; Visit Provider Family Medicine | DX: Z95.2 Presence of prosthetic heart valve (principal) | CPT/HCPCS: 85610 ==

== ENCOUNTER 2022-09-25 10:20 | Outpatient (CLI) | payer MEDICARE, SELFPAY ==
--- NOTE | 2022-09-25 10:24 | XR_ITS ---
WS: [id number] Exam: XR knee LT 3V* [id number] Date/Time of Exam: 09/25/2022 10:38 AM Reason For Exam: knee pain Comparison 01/27/2018. No fracture or dislocation. Moderately advanced degenerative narrowing of the medial joint compartmen t noted. Calcification of the lateral meniscus. Mild degenerative change of the patellofemoral joint. Small joint effusion. XR/XR knee LT 3V* [id number] IMPRESSION: 1. Degenerative changes most severe involving the medial joint compartment. 2. Small joint effusion. Chondrocalcinosis.
== END 2022-09-25 10:21 | disposition home or self-care (01) ==
LOC: RAD 10:24
PROVIDERS: PCP Family Medicine; Visit Provider Family Medicine
DX: S89.92XA Unspecified injury of left lower leg, initial encounter (principal); X58.XXXA Exposure to other specified factors, initial encounter; M17.12 Unilateral primary osteoarthritis, left knee
CPT/HCPCS: 73562

== ENCOUNTER → 2022-10-13 10:19 | Outpatient (BNVA) | payer MEDICARE, SELFPAY | PROVIDERS: PCP Family Medicine; Visit Provider Family Medicine | DX: I05.9 Rheumatic mitral valve disease, unspecified (principal); Z95.2 Presence of prosthetic heart valve; E78.5 Hyperlipidemia, unspecified; M79.7 Fibromyalgia | CPT/HCPCS: 80053; 80061; 85025; 85610 ==

== ENCOUNTER → 2022-10-29 11:45 | Outpatient (BNVA) | payer MEDICARE, SELFPAY | PROVIDERS: PCP Family Medicine; Visit Provider Family Medicine | DX: Z95.2 Presence of prosthetic heart valve (principal) | CPT/HCPCS: 85610 ==

== ENCOUNTER → 2022-12-02 14:52 | Outpatient (BNVA) | payer MEDICARE, SELFPAY | PROVIDERS: PCP Family Medicine; Visit Provider Family Medicine | DX: I05.9 Rheumatic mitral valve disease, unspecified (principal); Z79.01 Long term (current) use of anticoagulants; E78.5 Hyperlipidemia, unspecified; M79.7 Fibromyalgia | CPT/HCPCS: 85610 ==

== ENCOUNTER → 2023-01-04 11:51 | Outpatient (BNVA) | payer MEDICARE, SELFPAY | PROVIDERS: PCP Family Medicine; Visit Provider Family Medicine | DX: Z79.01 Long term (current) use of anticoagulants (principal); E78.5 Hyperlipidemia, unspecified; M79.7 Fibromyalgia; M50.90 Cervical disc disorder, unspecified, unspecified cervical region | CPT/HCPCS: 85610 ==

== ENCOUNTER → 2023-01-20 11:27 | Outpatient (BNVA) | payer MEDICARE, SELFPAY | PROVIDERS: PCP Family Medicine; Visit Provider Family Medicine | DX: R30.0 Dysuria (principal); M50.90 Cervical disc disorder, unspecified, unspecified cervical region | CPT/HCPCS: 81000; 87086 ==

== ENCOUNTER → 2023-02-05 10:26 | Outpatient (BNVA) | payer MEDICARE, SELFPAY | PROVIDERS: PCP Family Medicine; Visit Provider Family Medicine | DX: I05.9 Rheumatic mitral valve disease, unspecified (principal); Z79.01 Long term (current) use of anticoagulants | CPT/HCPCS: 85610 ==

== ENCOUNTER → 2023-02-22 11:24 | Outpatient (BNVA) | payer MEDICARE, SELFPAY | PROVIDERS: PCP Family Medicine; Visit Provider Family Medicine | DX: E78.5 Hyperlipidemia, unspecified (principal); I05.9 Rheumatic mitral valve disease, unspecified; M79.7 Fibromyalgia; Z95.2 Presence of prosthetic heart valve | CPT/HCPCS: 85610 ==

== ENCOUNTER 2023-03-05 10:47 | Outpatient (CLI) | payer MEDICARE, SELFPAY ==
--- NOTE | 2023-03-05 10:53 | MM_ITS ---
WS: [id number] BILATERAL SCREENING DIGITAL TOMOSYNTHESIS MAMMOGRAM WITH CAD HISTORY: screening COMPARISON: 02/11/2022 and 01/20/2022 and 03/26/2020 Bilateral CC and MLO views with tomosynthesis and synthetic mammography submitted. Computer aided det ection analyzed. Breast composition: The breasts are heterogeneously dense, which may obscure small masses. No suspici ous masses, microcalcifications or architectural distortion. Benign calcifications in each breast. IMPRESSION: MM/[place] [id number] BI-RADS: 2-Benign FOLLOW UP: 1 Year Follow-up
== END 2023-03-05 10:48 | disposition home or self-care (01) ==
LOC: RAD 10:47
PROVIDERS: PCP Family Medicine; Visit Provider Family Medicine
DX: Z12.31 Encounter for screening mammogram for malignant neoplasm of breast (principal)
CPT/HCPCS: 77063; 77067

== ENCOUNTER → 2023-03-24 13:12 | Outpatient (BNVA) | payer MEDICARE, SELFPAY | PROVIDERS: PCP Family Medicine; Visit Provider Family Medicine | DX: Z95.2 Presence of prosthetic heart valve (principal) | CPT/HCPCS: 85610 ==

== ENCOUNTER → 2023-04-21 10:01 | Outpatient (BNVA) | payer MEDICARE, SELFPAY | PROVIDERS: PCP Family Medicine; Visit Provider Family Medicine | DX: E78.5 Hyperlipidemia, unspecified (principal); I05.9 Rheumatic mitral valve disease, unspecified; M79.7 Fibromyalgia; Z95.2 Presence of prosthetic heart valve; Z79.01 Long term (current) use of anticoagulants; Z79.899 Other long term (current) drug therapy | CPT/HCPCS: 80053; 80061; 85025; 85610 ==

== ENCOUNTER → 2023-05-06 09:58 | Outpatient (BNVA) | payer MEDICARE, SELFPAY | PROVIDERS: PCP Family Medicine; Visit Provider Family Medicine | DX: E87.1 Hypo-osmolality and hyponatremia (principal); Z95.2 Presence of prosthetic heart valve | CPT/HCPCS: 80048; 85610 ==

== ENCOUNTER → 2023-06-04 10:29 | Outpatient (BNVA) | payer MEDICARE, SELFPAY | PROVIDERS: PCP Family Medicine; Visit Provider Family Medicine | DX: Z95.2 Presence of prosthetic heart valve (principal) | CPT/HCPCS: 85610 ==

== ENCOUNTER → 2023-07-05 10:44 | Outpatient (BNVA) | payer MEDICARE, SELFPAY | PROVIDERS: PCP Family Medicine; Visit Provider Family Medicine | DX: Z95.2 Presence of prosthetic heart valve (principal) | CPT/HCPCS: 85610 ==

== ENCOUNTER → 2023-08-09 09:27 | Outpatient (BNVA) | payer MEDICARE, SELFPAY | PROVIDERS: PCP Family Medicine; Visit Provider Family Medicine | DX: F41.9 Anxiety disorder, unspecified (principal); F32.9 Major depressive disorder, single episode, unspecified; E78.5 Hyperlipidemia, unspecified; E87.1 Hypo-osmolality and hyponatremia; Z95.2 Presence of prosthetic heart valve | CPT/HCPCS: 80053; 80061; 85025; 85610 ==

== ENCOUNTER → 2023-09-24 11:42 | Outpatient (BNVA) | payer MEDICARE, SELFPAY | PROVIDERS: PCP Family Medicine; Visit Provider Family Medicine | DX: I48.91 Unspecified atrial fibrillation (principal) | CPT/HCPCS: 85610 ==

== ENCOUNTER → 2023-10-04 11:34 | Outpatient (BNVA) | payer MEDICARE, SELFPAY | PROVIDERS: PCP Family Medicine; Visit Provider Family Medicine | DX: Z79.01 Long term (current) use of anticoagulants (principal) | CPT/HCPCS: 85610 ==

== ENCOUNTER → 2023-11-16 10:25 | Outpatient (BNVA) | payer MEDICARE, OTHER, SELFPAY | PROVIDERS: PCP Family Medicine; Visit Provider Family Medicine | DX: I48.91 Unspecified atrial fibrillation (principal) | CPT/HCPCS: 85610 ==

== ENCOUNTER → 2023-12-21 11:09 | Outpatient (BNVA) | payer MEDICARE, OTHER, SELFPAY | PROVIDERS: PCP Family Medicine; Visit Provider Family Medicine | DX: I48.91 Unspecified atrial fibrillation (principal) | CPT/HCPCS: 85610 ==

== ENCOUNTER → 2024-01-21 08:30 | Outpatient (BNVA) | payer MEDICARE, OTHER, SELFPAY | PROVIDERS: PCP Family Medicine; Visit Provider Family Medicine | DX: Z86.711 Personal history of pulmonary embolism (principal); I10 Essential (primary) hypertension; N18.9 Chronic kidney disease, unspecified; E87.1 Hypo-osmolality and hyponatremia; E78.5 Hyperlipidemia, unspecified; I05.9 Rheumatic mitral valve disease, unspecified; M79.7 Fibromyalgia; F41.9 Anxiety disorder, unspecified; F32.9 Major depressive disorder, single episode, unspecified | CPT/HCPCS: 80053; 80061; 85025; 85610 ==

== ENCOUNTER → 2024-01-27 12:14 | Outpatient (BNVA) | payer MEDICARE, OTHER, SELFPAY | PROVIDERS: PCP Family Medicine; Visit Provider Family Medicine | DX: R35.0 Frequency of micturition (principal); R31.9 Hematuria, unspecified | CPT/HCPCS: 81015; 87086 ==

== ENCOUNTER 2024-02-16 06:25 | Outpatient (CLI) | payer MEDICARE, OTHER, SELFPAY ==
--- NOTE | 2024-02-16 06:45 | US_ITS ---
WS: [id number] RENAL ULTRASOUND URINARY BLADDER ULTRASOUND HISTORY: hematuria COMPARISON: 02/08/2019 TECHNIQUE: 2-D and color Doppler imaging of the kidney submitted. Right kidney: 9.8 cm x 4.6 cm x 4.7 cm. Low normal size kidney. Kidney is poorly visualized. I suspect there may be some scarring and cortica l thinning in the superior kidney. There is no hydronephrosis or solid mass identified. Kidney is not as well-visualized as on the prior exam. Left kidney: 9.7 cm x 4.2 cm x 5.1 cm. Poorly visualized kidneys in entirety. Cortical thinning in the superior pole suspected. This area ma y be obscured by bowel gas. There is no obstruction. Aorta: Normal. Urinary Bladder: Well-distended bladder. Prevoid volume: 333 mL. Post void volume: 40 mL. US/US renal BI with PV bladder IMPRESSION: 1. Suboptimal quality evaluation of the kidneys. 2. No hydronephrosis. 3. Kidneys are low normal size with suspected areas of cortical thinning. Mild medical renal disease. 4. Minimal post void residual.
== END 2024-02-16 06:26 | disposition home or self-care (01) ==
PROVIDERS: PCP Family Medicine; Visit Provider Family Medicine
DX: R31.9 Hematuria, unspecified (principal); Z79.01 Long term (current) use of anticoagulants
CPT/HCPCS: 76770; 76857; 85610

== ENCOUNTER → 2024-02-24 11:14 | Outpatient (BNVA) | payer MEDICARE, OTHER, SELFPAY | PROVIDERS: PCP Family Medicine; Visit Provider Family Medicine | DX: I48.91 Unspecified atrial fibrillation (principal) | CPT/HCPCS: 85610 ==

== ENCOUNTER 2024-03-14 10:44 | Outpatient (CLI) | payer MEDICARE, OTHER, SELFPAY ==
--- NOTE | 2024-03-14 10:45 | MM_ITS ---
WS: [id number] BILATERAL 3D TOMOSYNTHESIS DIGITAL SCREENING MAMMOGRAPHY WITH CAD CLINICAL INFORMATION: SCREENING HISTORY: Screening mammogram. No current complaints. COMPARISON: 2022 TECHNIQUE: Bilateral CC and MLO views. FINDINGS: The breasts are composed of heterogeneous fibroglandular density tissue, which can limit the detectio n of small underlying mass lesions. No suspicious mass, asymmetry, calcifications, or architectural d istortion. No evidence of malignancy. Bulky dystrophic calcifications. Lucent centered calcifications . Vascular calcification. MM/MM [facility] tomosynthesis [id number] IMPRESSION: DENSITY: The breasts are heterogeneously dense, which may obscure small masses. BI-RADS: 2 - Benign FOLLOW UP: 1 Year Follow-up Recommend return to annual screening mammography.
== END 2024-03-14 10:45 | disposition home or self-care (01) ==
LOC: RAD 10:45
PROVIDERS: PCP Family Medicine; Visit Provider Family Medicine
DX: Z12.31 Encounter for screening mammogram for malignant neoplasm of breast (principal); R92.333 Mammographic heterogeneous density, bilateral breasts; R92.1 Mammographic calcification found on diagnostic imaging of breast
CPT/HCPCS: 77063; 77067

== ENCOUNTER → 2024-03-21 10:29 | Outpatient (BNVA) | payer MEDICARE, OTHER, SELFPAY | PROVIDERS: PCP Family Medicine; Visit Provider Family Medicine | DX: I48.91 Unspecified atrial fibrillation (principal) | CPT/HCPCS: 85610 ==

== ENCOUNTER → 2024-04-05 13:45 | Outpatient (BNVA) | payer MEDICARE, OTHER, SELFPAY | PROVIDERS: PCP Family Medicine; Visit Provider Family Medicine | DX: I48.91 Unspecified atrial fibrillation (principal) | CPT/HCPCS: 85610 ==

== ENCOUNTER → 2024-05-05 11:02 | Outpatient (BNVA) | payer MEDICARE, OTHER, SELFPAY | PROVIDERS: PCP Family Medicine; Visit Provider Family Medicine | DX: R31.9 Hematuria, unspecified (principal) | CPT/HCPCS: 80048; 85610 ==

== ENCOUNTER → 2024-05-23 09:04 | Outpatient (BNVA) | payer MEDICARE, OTHER, SELFPAY | PROVIDERS: PCP Family Medicine; Visit Provider Family Medicine | DX: I48.91 Unspecified atrial fibrillation (principal) | CPT/HCPCS: 85610 ==

== ENCOUNTER → 2024-06-19 13:17 | Outpatient (BNVA) | payer MEDICARE, OTHER, SELFPAY | PROVIDERS: PCP Family Medicine; Visit Provider Family Medicine | DX: I48.91 Unspecified atrial fibrillation (principal); I05.9 Rheumatic mitral valve disease, unspecified; M79.7 Fibromyalgia | CPT/HCPCS: 85610 ==

== ENCOUNTER → 2024-07-04 11:26 | Outpatient (BNVA) | payer MEDICARE, OTHER, SELFPAY | PROVIDERS: PCP Family Medicine; Visit Provider Family Medicine | DX: I48.91 Unspecified atrial fibrillation (principal) | CPT/HCPCS: 85610 ==

== ENCOUNTER → 2024-07-31 09:26 | Outpatient (BNVA) | payer MEDICARE, OTHER, SELFPAY | PROVIDERS: PCP Family Medicine; Visit Provider Family Medicine | DX: I10 Essential (primary) hypertension (principal); Z86.711 Personal history of pulmonary embolism; R73.03 Prediabetes | CPT/HCPCS: 80053; 80061; 83036; 85610 ==

== ENCOUNTER → 2024-09-05 12:17 | Outpatient (BNVA) | payer MEDICARE, OTHER, SELFPAY | PROVIDERS: PCP Family Medicine; Visit Provider Family Medicine | DX: I48.91 Unspecified atrial fibrillation (principal) | CPT/HCPCS: 85610 ==

== ENCOUNTER → 2024-09-26 09:21 | Outpatient (BNVA) | payer MEDICARE, OTHER, SELFPAY | PROVIDERS: PCP Family Medicine; Visit Provider Family Medicine | DX: I05.9 Rheumatic mitral valve disease, unspecified (principal) | CPT/HCPCS: 85610 ==

== ENCOUNTER → 2024-11-02 12:29 | Outpatient (BNVA) | payer MEDICARE, OTHER, SELFPAY | PROVIDERS: PCP Family Medicine; Visit Provider Family Medicine | DX: M50.90 Cervical disc disorder, unspecified, unspecified cervical region (principal); F41.9 Anxiety disorder, unspecified; F32.9 Major depressive disorder, single episode, unspecified; Z95.2 Presence of prosthetic heart valve; Z79.01 Long term (current) use of anticoagulants; Z23 Encounter for immunization; E78.5 Hyperlipidemia, unspecified | CPT/HCPCS: 80053; 85025; 85610 ==

== ENCOUNTER → 2024-11-27 09:27 | Outpatient (BNVA) | payer MEDICARE, OTHER, SELFPAY | PROVIDERS: PCP Family Medicine; Visit Provider Clinical Nurse Specialist Adult Health | DX: N39.0 Urinary tract infection, site not specified (principal) | CPT/HCPCS: 81000; 87077; 87086; 87184 ==

== ENCOUNTER 2024-12-14 09:33 | Outpatient (CLI) | payer MEDICARE, OTHER, SELFPAY ==
--- NOTE | 2024-12-14 09:37 | XR_ITS ---
WS: [id number] XR ankle RT min 3V* [id number] REASON FOR EXAM: ankle pain FINDINGS: Diffuse swelling of the soft tissues about the ankle joint. Potential healing occult transverse fracture of the fibula at the level of the tibiotalar joint. Joint spaces are intact. XR/XR ankle RT min 3V* [id number] IMPRESSION: Potential healing fracture as above.
== END 2024-12-14 09:34 | disposition home or self-care (01) ==
LOC: RAD 09:35
PROVIDERS: PCP Family Medicine; Visit Provider Family Medicine
DX: M25.571 Pain in right ankle and joints of right foot (principal)
CPT/HCPCS: 73610; 81000; 87077; 87086; 87184

== ENCOUNTER → 2024-12-26 12:42 | Outpatient (BNVA) | payer MEDICARE, OTHER, SELFPAY | PROVIDERS: PCP Family Medicine; Visit Provider Podiatrist Foot & Ankle Surgery | DX: S93.401A Sprain of unspecified ligament of right ankle, initial encounter (principal); M84.361A Stress fracture, right tibia, initial encounter for fracture; X58.XXXA Exposure to other specified factors, initial encounter | CPT/HCPCS: 99203 ==

== ENCOUNTER 2025-01-09 12:36 | Outpatient (CLI) | payer MEDICARE, OTHER, SELFPAY ==
--- NOTE | 2025-01-09 13:00 | MR_ITS ---
WS: [id number] MRI RIGHT ANKLE WITHOUT CONTRAST. COMPARISON: Radiograph 12/14/2024. Multiplanar, multisequence imaging is performed without contrast. Loss of the normal cortical surface of the lateral talar neck. There are small avulsion fractures involving the cortical surface of the lateral talar neck. There is also small amount of edema in the distal fibular tip. These findings are probably the result of an impaction injury from the distal fibula on the lateral talar neck. No additional osseous abnormalities. No talar dome osteochondral injury. Peroneal tendons: There is a large amount of edema within the peroneal tendon sheath. Abnormal peroneal brevis tendon. There is a split tear of the peroneal brevis tendon with partial invagination of the peroneal longus tendon. U shape of the peroneal brevis tendon. The tear continues distally near the peroneal tubercle. There is fluid in the central peroneal brevis tendon distally. The insertion to the fifth metatarsal remains intact. The peroneal longus tendon appears intact also. There is heterogeneous signal within the tendon sheath from tenosynovitis. Unable to identify the peroneal retinaculum which is most likely injured an avulsed causing displacement of the peroneal tendon sheath. Achilles tendon is normal. The flexor hallucis longus and flexor digitorum longus and the posterior tibialis tendons are normal. Anterior tibialis tendon is normal. There is increased T2 signal within the extensor digitorum tendon and tendon sheath at the level of the talar neck. There is a large amount of edema surrounding the ankle. Majority the edema is lateral and over the dorsal surface of the lateral foot. No widening of the syndesmosis. There is a small osteochondral lesion involving the distal medial fibula at the level of the syndesmosis. This osteochondral lesion measures 4 mm. Mild sprain of the anterior tibiofibular ligament. The posterior tibiofibular ligament is normal. Complete tear of the anterior talofibular ligament. Ligament is not identified. There is edema within the posterior talofibular ligament but it does appear predominantly intact. Calcaneofibular ligament although small caliber does appear to be intact. There is fluid surrounding the calcaneofibular ligament. No full-thickness tear. Normal striations in the deltoid ligament. No fluid in the sinus Tarsi. MR/MR ankle RT wo con* [id number] IMPRESSION: 1. Acute cortical injury involving the lateral talar neck and the very distal fibula. Most consistent with a contusion/impaction injury. 2. Abnormal peroneal tendons. There is a long split tear involving the peroneu s brevis tendon with invagination of the peroneus longus tendon. Peroneus brevi s tendon is U-shaped and tear extends from above the tibiotalar joint to the pe roneal tubercle. The distal peroneus brevis tendon is attached to the fifth met atarsal. 3. There is a large amount of edema and heterogeneous signal within the perone al tendon sheath consistent with tenosynovitis. Majority of the peroneal longus tendon is intact but there may be superficial injury. Most significant abnorma lity of the peroneus longus tendon is at the level of the fibular complete tear of the anterior talofibular ligament. Tip. 4. Complete tear anterior talofibular ligament. 5. Mild sprain of the anterior tibiofibular ligament. 6. 4 mm osteochondral lesion distal medial fibula. 7. Abnormal T2 signal in the extensor digitorum tendon and tendon sheath at th e level of the talar neck from partial tear.
== END 2025-01-09 12:37 | disposition home or self-care (01) ==
LOC: RAD 12:38
PROVIDERS: PCP Family Medicine; Visit Provider Podiatrist Foot & Ankle Surgery
DX: S82.831A Other fracture of upper and lower end of right fibula, initial encounter for closed fracture (principal); I48.91 Unspecified atrial fibrillation; S86.311A Strain of muscle(s) and tendon(s) of peroneal muscle group at lower leg level, right leg, initial encounter; S93.491A Sprain of other ligament of right ankle, initial encounter; X58.XXXA Exposure to other specified factors, initial encounter; M76.71 Peroneal tendinitis, right leg; M65.871 Other synovitis and tenosynovitis, right ankle and foot; M93.271 Osteochondritis dissecans, right ankle and joints of right foot
CPT/HCPCS: 73721; 85610

== ENCOUNTER → 2025-01-16 15:13 | Outpatient (BNVA) | payer MEDICARE, OTHER, SELFPAY | PROVIDERS: PCP Family Medicine; Visit Provider Podiatrist Foot & Ankle Surgery | DX: S93.401A Sprain of unspecified ligament of right ankle, initial encounter (principal); S93.491A Sprain of other ligament of right ankle, initial encounter; M84.361A Stress fracture, right tibia, initial encounter for fracture; S86.311A Strain of muscle(s) and tendon(s) of peroneal muscle group at lower leg level, right leg, initial encounter; M24.071 Loose body in right ankle; X58.XXXA Exposure to other specified factors, initial encounter | CPT/HCPCS: 99214 ==

== ENCOUNTER → 2025-01-24 11:35 | Outpatient (BNVA) | payer MEDICARE, OTHER, SELFPAY | PROVIDERS: PCP Family Medicine; Visit Provider Family Medicine | DX: E78.5 Hyperlipidemia, unspecified (principal); Z95.2 Presence of prosthetic heart valve | CPT/HCPCS: 80053; 80061; 85025 ==

== ENCOUNTER 2025-02-15 09:58 | Outpatient (CLI) | payer MEDICARE, OTHER, SELFPAY ==
--- NOTE | 2025-02-15 10:06 | US_ITS ---
WS: [id number] BILATERAL 3D TOMOSYNTHESIS DIGITAL DIAGNOSTIC MAMMOGRAPHY WITH CAD CLINICAL INFORMATION: breast lump HISTORY: RIGHT breast lump COMPARISON: 2023 TECHNIQUE: Bilateral CC, MLO, and ML views. FINDINGS: The breasts are composed of heterogeneous fibroglandular density, which can limit the detection of small underlying mass lesions. Vascular calcification. Dystrophic calcifications. Incidental intramammary lymph node RIGHT breast. Palpable marker RIGHT breast. No suspicious mammographic abnormalities in this area. Ultrasound is pending. ULTRASOUND BREAST RIGHT TECHNIQUE: Ultrasound right breast focused area of concern. CLINICAL INFORMATION: breast lump FINDINGS: Ultrasound RIGHT breast area of concern. Shadowing calcification in the area of concern 12 o'clock position 1 cm from the nipple. No other suspicious abnormalities. Findings are benign. Recommend return to annual screening mammography US/US breast RT limited* [id number] IMPRESSION: DENSITY: BI-RADS: 2 - Benign FOLLOW UP: 1 Year Follow-up Recommend return to annual screening mammography.
--- NOTE | 2025-02-15 10:20 | MM_ITS ---
WS: [id number] BILATERAL 3D TOMOSYNTHESIS DIGITAL DIAGNOSTIC MAMMOGRAPHY WITH CAD CLINICAL INFORMATION: breast lump HISTORY: RIGHT breast lump COMPARISON: 2023 TECHNIQUE: Bilateral CC, MLO, and ML views. FINDINGS: The breasts are composed of heterogeneous fibroglandular density, which can limit the detection of small underlying mass lesions. Vascular calcification. Dystrophic calcifications. Incidental intramammary lymph node RIGHT breast. Palpable marker RIGHT breast. Coarse calcification deep to the palpable marker. Ultrasound is described below ULTRASOUND BREAST RIGHT TECHNIQUE: Ultrasound right breast focused area of concern. CLINICAL INFORMATION: breast lump FINDINGS: Ultrasound RIGHT breast area of concern. Shadowing calcification in the area of concern 12 o'clock position 1 cm from the nipple. No other suspicious abnormalities. Findings are benign. Recommend return to annual screening mammography MM/MM diag BI tomosynthesis [id number] IMPRESSION: DENSITY: The breasts are heterogeneously dense, which may obscure small masses. BI-RADS: 2 - Benign FOLLOW UP: 1 Year Follow-up Recommend return to annual screening mammography.
== END 2025-02-15 09:59 | disposition home or self-care (01) ==
LOC: RAD 09:58
PROVIDERS: PCP Family Medicine; Visit Provider Family Medicine
DX: N63.15 Unspecified lump in the right breast, overlapping quadrants (principal); R92.323 Mammographic fibroglandular density, bilateral breasts; R92.333 Mammographic heterogeneous density, bilateral breasts
CPT/HCPCS: 76642; 77062; G0279

== ENCOUNTER 2025-02-19 09:09 | Day surgery (SDC) | payer MEDICARE, OTHER, SELFPAY ==
[2025-02-19] VITALS (11 sets, daily range): BP systolic 121–152; BP diastolic 73–99; PULSE 73–80; RESP 14–18; TEMP 36.1–36.7; O2SAT 90–99; BMI 40.8
--- NOTE | 2025-02-19 | XR_ITS ---
WS: [id number] Exam: XR ankle RT min 3V* [id number] Date/Time of Exam: 02/19/2025 12:00 AM Reason For Exam: Right brostrom, peroneus longus repa Intraoperative images of the right mid and hindfoot are submitted. Images were obtained for intraoperative visualization purposes.
[2025-02-19] MEDS: acetaminophen 1,000 MG/100 ML PIGGYBACK 400 MG IV (09:45)
--- NOTE | 2025-02-19 09:59 | W.PM.OPSFHP ---
Same Day Surgery H&P Indication for Procedure/HPI DATE OF PROCEDURE: February 19, 2025 CHIEF COMPLAINT/INDICATIONFOR SURGICAL PROCEDURE: Chronic ankle instability PREOP DIAGNOSIS: Chronic ankle instability right ankle PLANNED PROCEDURE: Operation Date: 02/19/25 10:40 Proposed Procedures p RIGHT Modified Brostrom w/ internal Brace(Right) - Leon Gallego DPM s RIGHT Peroneus Brevis Repair(Right) - KARLI Larson RIGHT Peroneus Longus Tenosynovectomy(Right) - KARLI Larson RIGHT Ankle Arthroscopy w/ OCD Repair w/ Loose Body Removal(Right) - Leon Gallego DPM Medications/Allergies* Home Medications ?Medication ?Instructions ?Recorded ?Confirmed ?Type docusate sodium 100 mg capsule 100 mg PO BID 03/17/20 02/16/25 History (Colace) aripiprazole 20 mg tablet 20 mg PO DAILY 02/16/25 History atorvastatin 20 mg tablet 20 mg PO QAM 02/16/25 02/16/25 History buspirone 15 mg tablet 15 mg PO BID 02/16/25 02/16/25 History cyclobenzaprine 10 mg tablet 10 mg PO TID PRN Muscle Spasm 02/16/25 02/16/25 History duloxetine 60 mg capsule,delayed 60 mg PO BID 02/16/25 02/16/25 History release furosemide 40 mg tablet See Rx Instructions .Route .COMPLEX 02/16/25 02/16/25 History gabapentin 100 mg capsule 200 mg PO BID 02/16/25 02/16/25 History metoprolol tartrate 50 mg tablet 50 mg PO BID 02/16/25 02/16/25 History mupirocin 2 % topical ointment 1 applic topical TID PRN Rash 02/16/25 02/16/25 History sennosides 25 mg tablet 25 mg PO BID 02/16/25 02/16/25 History triamcinolone acetonide 0.5 % 1 applic topical BID 02/16/25 02/16/25 History topical cream warfarin 2 mg tablet 3 mg PO DAILY 02/16/25 02/16/25 History Allergies/Adverse Reactions Allergy/AdvReac Type Severity Reaction Status Date / Time amitriptyline (From [facility]) Allergy Unknown I cannot Verified 01/16/25 15:18 remember -- it happened 30 years ago Current Medications: Generic Name Dose Route Start Last Admin Trade Name Judson PRN Reason Stop Dose Admin Sodium Chloride 1,000 mls @ 30 mls/hr 02/19/25 09:15 02/19/25 09:45 Sodium Chloride 0.9% IV 02/20/25 09:14 30 mls/hr .Q24H CAESAR Administration Pertinent History/Comorbid Conditions* Medical History (Updated 02/01/25 @ 11:56 by Elver Veloz MD) GERD (gastroesophageal reflux disease) takes OTC meds Smoker Asymptomatic microscopic hematuria Fibromyalgia Cervical disc disease Anxiety and depression Hyperlipidemia Mitral valve disorder Coagulopathy Surgical History (Updated 05/04/22 @ 06:24 by Elver Veloz MD) History of left breast biopsy History of ectopic I had surgery to clean scar tissue out of my tubes and I got a tubal that had to be operated on a couple years later History of knee replacement, total Right Hx of mitral valve replacement Mechanical 2007 History of fusion of cervical spine Anterior x 2 Hx of abdominal hysterectomy / BSO Family History (Updated 03/15/20 @ 12:37 by ZOYA Ornelas) Father, AT AGE 84 COLON CANCER,PULMONARY FIBROSIS Diabetes Mother Cancer Father Social History Smoking and tobacco/nicotine status: never used tobacco/nicotine Alcohol intake: never Substance/Drug Use: current Substance/Drug use frequency: Special occassions/opportunity only Adopted: No Caregiver/support person: No Current occupational status: disabled Pertinent Exam Findings alert, oriented x 3, clear to auscultation bilaterally, regular rate & rhythm, operative site marked and procedure specific exam findings BELOW IS A FOCUSED LOWER EXTREMITY EXAM VASCULAR: DP/PT pulses palpable 2/4 with CFT intact, <3 seconds to distal digits DERMATOLOGICAL: Skin turgor and temperature is within normal limits. No open wounds, ecchymosis, or erythema noted over the right ankle. No signs of infection. MUSCULOSKELETAL: Focal tenderness to palpation over the distal fibula, ATFL, and CFL ligaments. Positive anterior drawer and inversion stress test on the right ankle. No gross deformity. Range of motion limited by pain. No tenderness noted to midfoot or hindfoot. Muscle strength 5/5 when not inhibited by discomfort. NEUROLOGICAL: Neurological sensation to the right foot and ankle is present through L4-S1 dermatomes with no hyper/hypoesthesias. Negative Tinel and Valleix?s signs. IMAGING: MRI of the right ankle was independently reviewed and interpreted by me. This shows intra-articular loose body measuring 4 mm, longitudinal split tear of peroneal tendons with surrounding synovitis, and rupture of the anterior talofibular ligament (ATFL). CARDIO: Regular rate and rhythm. Normal S1, S2. No murmurs, rubs or gallops RESPIRATORY: Normal respiratory effort. No wheezing or crackles. Clear to auscultation Recommendations Surgery/Procedure today Coding Level of Care Code Acute Code for Chg Isidro
[2025-02-19] MEDS: midazolam 1 mg/mL INJ 2 mL 2 MG IVP (10:09)
[2025-02-19] MEDS: ceFAZolin 2,000 mg SDV 2000 MG IVP (10:09)
--- NOTE | 2025-02-19 10:09 | ANES.PREANE2 ---
Pre-Anesthetic Assessment Height/Weight: Height 1.7 m Weight 118.388 kg Temp Pulse Resp BP Pulse Ox O2 Del Method 97.0 F L 75 18 147/82 97 Room Air 02/19/25 09:22 02/19/25 09:22 02/19/25 09:22 02/19/25 09:22 02/19/25 09:22 02/19/25 09:22 Preop Diagnosis: Chronic ankle instability right ankle Operation Date: 02/19/25 10:40 Proposed Procedures p RIGHT Modified Brostrom w/ internal Brace(Right) - Leon Gallego DPM s RIGHT Peroneus Brevis Repair(Right) - KARLI Larson RIGHT Peroneus Longus Tenosynovectomy(Right) - KARLI Larson RIGHT Ankle Arthroscopy w/ OCD Repair w/ Loose Body Removal(Right) - Leon Gallego DPM Familial anesthetic complications: None Was Beta Lucas taken within 24 hours: N/A Was Clonidine taken within 24 hours: N/A Last intake: Intake Last Liquid Date 02/18/25 Last Liquid Time 23:00 Last Solid Date 02/18/25 Last Solid Time 23:00 Social No alcohol and No tobacco Exam alert, oriented x 3, clear to auscultation bilaterally and regular rate & rhythm Airway Mallampati: Class III Dentition: full CV/HEM Mitral valve replacement on bridge with lovenox Metabolic Morbid Ob[place] [facility] [place] Fibromyalgia Anesthetic Plan ASA status: 3 Anesthesia: General and Regional (specify below) Risk of > 500 ml blood loss (7ml/kg in children): No Medications/Allergies Home Medications ?Medication ?Instructions ?Recorded ?Confirmed ?Last Taken ?Type docusate sodium 100 mg capsule 100 mg PO BID 03/17/20 02/16/25 02/19/25 05:00 History (Colace) potassium chloride 10 mEq 10 meq PO DAILY #90 tabs 04/15/22 02/16/25 Unknown Rx tablet,extended release Held on 04/26/23. Instructions: Home Medication placed on hold at Doctor's office albuterol sulfate 90 mcg/actuation 2 puff inhalation Q4H PRN 05/26/23 02/16/25 Unknown Rx aerosol inhaler (Ventolin HFA) shortness of breath or wheezing #8.5 grams warfarin 5 mg tablet 5 mg PO DAILY #90 tabs 07/11/24 02/16/25 02/14/25 Rx clonazepam 1 mg tablet 1 mg PO BID #60 tabs 12/12/24 02/16/25 02/19/25 05:00 Rx cam boot #1 ea 12/26/24 02/01/25 Unknown Rx enoxaparin 40 mg/0.4 mL 40 mg (0.4 mL) SUBCUT DAILY #4 mL 02/01/25 02/16/25 02/17/25 Rx subcutaneous syringe (Lovenox) hydrocodone 5 mg-acetaminophen 325 1 - 2 tab PO TID PRN Pain 1 month 02/01/25 02/16/25 02/19/25 05:00 Rx mg tablet #90 tabs lactulose 10 gram/15 mL oral 20 g (30 mL) PO BID #300 mL 02/01/25 02/16/25 Unknown Rx solution aripiprazole 20 mg tablet 20 mg PO DAILY 02/16/25 02/16/25 History atorvastatin 20 mg tablet 20 mg PO QAM 02/16/25 02/16/25 02/16/25 History buspirone 15 mg tablet 15 mg PO BID 02/16/25 02/16/25 02/16/25 History cyclobenzaprine 10 mg tablet 10 mg PO TID PRN Muscle Spasm 02/16/25 02/16/25 02/16/25 History duloxetine 60 mg capsule,delayed 60 mg PO BID 02/16/25 02/16/25 02/16/25 History release furosemide 40 mg tablet See Rx Instructions .Route .COMPLEX 02/16/25 02/16/25 02/15/25 History gabapentin 100 mg capsule 200 mg PO BID 02/16/25 02/16/25 02/16/25 History metoprolol tartrate 50 mg tablet 50 mg PO BID 02/16/25 02/16/25 02/19/25 05:00 History mupirocin 2 % topical ointment 1 applic topical TID PRN Rash 02/16/25 02/16/25 02/07/25 History sennosides 25 mg tablet 25 mg PO BID 02/16/25 02/16/25 02/16/25 History triamcinolone acetonide 0.5 % 1 applic topical BID 02/16/25 02/16/25 Unknown History topical cream warfarin 2 mg tablet 3 mg PO DAILY 02/16/25 02/16/25 02/14/25 History hydrocodone 10 mg-acetaminophen 1 tab PO Q6H PRN pain #28 tabs 02/19/25 Unknown Rx 325 mg tablet Allergies Allergy/AdvReac Type Severity Reaction Status Date / Time amitriptyline (From [facility]) Allergy Unknown I cannot Verified 01/16/25 15:18 remember -- it happened 30 years ago Current Medications Generic Name Dose Route Start Last Admin Trade Name Freq PRN Reason Stop Dose Admin Sodium Chloride 1,000 mls @ 30 mls/hr 02/19/25 09:15 02/19/25 09:45 Sodium Chloride 0.9% IV 02/20/25 09:14 30 mls/hr .Q24H CAESAR Administration PFSH Anesthesia Medical History GERD (gastroesophageal reflux disease) takes OTC meds Smoker Asymptomatic microscopic hematuria Fibromyalgia Cervical disc disease Anxiety and depression Hyperlipidemia Mitral valve disorder Coagulopathy Surgical History History of left breast biopsy History of ectopic I had surgery to clean scar tissue out of my tubes and I got a tubal that had to be operated on a couple years later History of knee replacement, total Right Hx of mitral valve replacement Mechanical 2007 History of fusion of cervical spine Anterior x 2 Hx of abdominal hysterectomy / BSO Family History Father , AT AGE 84 COLON CANCER,PULMONARY FIBROSIS Cancer Mother Diabetes Social History Smoking and tobacco/nicotine status: never used tobacco/nicotine Alcohol intake: never Substance/Drug Use: current Substance/Drug use frequency: Special occassions/opportunity only Adopted: No Caregiver/support person: No Current occupational status: disabled Data Anesthesia Cardiac Studies: Echocardiogram Ultrasound 03/16/20 Anesthesia Procedures Nerve Block Nerve Block 1: Main Anesthesia: general anesthesia Time Out Performed: Yes Consent: requested by attending/covering physician, from patient, from other and risks and benefits reviewed Nerve block location: adductor canal (R) and popliteal (R) Anesthesia monitors applied: pulse oximetry, EKG, BP cuff and oxygen Nerve block position: supine Anesthetic Used: ropivicaine 0.5% (20 ml poplitela, 10 ml adductor) and with decadron (3 mg popliteal, 1 mg adductor) Ultrasound used to: recognize landmarks and visualize and ID femerol nerve Interscalene/Femoral BLK: 4 stimuplex 21 g needle used for position and inplane approach, visualize local anesthetic spread and no vascular puncture identified Injection: neg aspiration of heme Patient Tolerated Procedure: well Complications: none and bleeding (self-limited)
--- NOTE | 2025-02-19 10:17 | PC.NURSE ---
Time out at 0953. Dr Merino administered Ropivacaine 150mg and Decadron 4 mg into right lower thigh. Pt tolerated well.
--- NOTE | 2025-02-19 12:40 | P.OP_ITS ---
Operative Report Date of procedure: February 19, 2025 Surgeon: Leon Gallego DPM Procedure: Date of procedure: 02/19/2025 Pre-op diagnosis: Right chronic ankle instability, peroneus longus tendon tear, peroneus brevis tenosynovitis, ankle OCD Post-op diagnosis: Same Post-op findings: Peroneus longus tendon split tear, tenosynovitis running peroneus brevis tendon, lateral ankle instability right ankle, OCD medial fibula Procedure done: 1. Right modified brostrom with internal brace 53905 2. Right peroneus brevis repair 41593 3. Right peroneus longus tenosynovectomy 02280 4. Right ankle arthroscopy with debridement of OCD CPT 15329 Implants: Internal brace [employer], fiber tack x 2 [employer] Specimens removed: None Surgeon: Dr. Leon Gallego DPM Plasterer Helper: Lincoln Estimated blood loss: 5 cc Tourniquet time: 107 minutes Complications: None Patient is a 64-year-old female that has a history of right ankle OCD, peroneus longus tendon tear, peroneus brevis tenosynovitis, chronic ankle instability. The patient has had the aforementioned chief complaint for some time. Conservative treatment measures have been attempted and the patient has opted for surgical intervention at this time. A lengthy discussion regarding the procedure, including risks and complications has been had with the patient and is noted in the recent clinic note. Written and verbal consent have been obtained. All patient questions have been answered to the patient?s satisfaction. No written or verbal guarantees have been given or implied. The patient has been NPO since midnight. The history has been reviewed and the history and physical is current. The signed consent was confirmed and placed in the patient chart. Patient imaging has been reviewed and is consistent with the diagnosis. Under mild sedation, the patient was brought into the operating room and placed on the table in the supine position. IV antibiotics were given by the anesthesia team as preoperative surgical prophylaxis. General sedation was then performed by the anesthesiateam. Popliteal block was performed by the anesthesia department. A pneumatic tourniquet was then placed about the right thigh. The operative extremity was then prepped and draped in the usual fashion. The extremity was then elevated and exsanguinated before the tourniquet was inflated to 325 mmHg. After inflation, the following procedure was then performed. Attention was directed to the right ankle where anteromedial portal was established using a #15 blade. Trocar and cannula was inserted into the anteromedial ankle portal. Trocar was removed and arthroscopy scope was inserted into the cannula. Ankle joint was evaluated. Medial aspect of fibula was noted to have osteochondral defect. Talar dome appeared healthy and viable free from osteochondral defect. Anterolateral portal was established. Arthroscopic shaver was inserted into the ankle joint. Synovitis of ankle joint was debrided. Osteochondral defect of medial fibula was debrided using arthroscopic shaver down to bleeding bone. No further arthroscopic treatment was warranted. Pictures were obtained. Shaver and arthroscope were removed from the ankle. Portals were closed using 4-0 nylon in horizontal mattress fashion. Attention was directed to the lateral aspect of the right ankle where an 8 cm incision was made overlying the lateral malleolus along the course the peroneal tendons using a #15 blade.. Dissection was carried down through subcutaneous and superficial fascia using blunt dissection to the level of the peroneal tendon sheath. This was incised to expose the underlying peroneal tendons. Large longitudinal split tear of peroneus longus tendon was noted. Diseased portion of tendon was excised. Peroneus brevis tendon was evaluated and noted to have significant tenosynovitis surrounding tendon. #15 blade was used to excise tenosynovitis surrounding peroneus brevis tendon. Attention was then directed to peroneus longus tendon. Retubularization was performed using 2-0 Ethibond. Attention was then directed to the lateral ankle ligaments to the right ankle. Instability of the ankle joint with positive anterior drawer was noted. Internal brace was then applied to the lateral ankle per manufacture protocol being fixated in the talus and fibula to recreate the ATFL using swivel lock anchors. Good positioning of the internal brace was noted and care was taken to not over tighten the internal brace. 2 fiber tack anchors were inserted into the fibula. These were used to perform the Brostr?m repair and pants over vest fashion. Good positioning of anchors were noted. The incision site was then irrigated with copious Damon sterile saline. Anterior drawer test was performed and ankle was noted to be stable at this point. Attention was then directed to closure. Deep tissue was closed using 2-0 Vicryl followed by subcuticular closure with 4-0 Vicryl and skin closure with 3-0 nylon in horizontal mattress fashion. Incision sites were dressed with Xeroform, 4 x 4 gauze, Kerlix, Jonathan. Tourniquet was let down and good hyperemic response was noted to all digits of the right foot. Patient was placed in a cam boot. The patient tolerated the procedure and anesthesia well and without complication. The patient was transported from the operating room to the recovery room with vital signs stable and vascular status intact to all digits of the right foot. The patient was given both written and verbal instructions to remain nonweightbearing to the operative extremity, to keep dressings/splint clean, dry and intact and to take pain medication as directed. The patient will follow-up in the outpatient setting at their scheduled appointment. The patient was discharged with my personal number and was instructed to call if any questions or issues should arise. They were discharged home once anesthesia criteria was met.
--- NOTE | 2025-02-19 12:40 | W.PM.BPON ---
Date of procedure: 02/19/25 Surgeon name: Dr. Leon Gallego, DPM Compound Specialist(s) name(s): Lincoln Procedure(s) performed: Right brostrom, peroneus longus repair, peroneus brevis tenosynovectomy, ankle arthroscopy Description of findings: Right fibula OCD, peroneus longus tear, tenosynovitis Estimated blood loss: 5 cc Tourniquet time: 107 minutes Specimen(s) removed: none Post-operative diagnosis: See op note
--- NOTE | 2025-02-19 13:40 | ANE.PACU2 ---
Inpatient post-anesthesia follow up: Airway intact: Yes Vital signs: Temperature 98.0 F Pulse Rate 78 Respiratory Rate 18 Blood Pressure 137/89 Pulse Oximetry 94 Oxygen Delivery Me thod Room Air Oxygen Flow Rate 10 Fraction of Inspir ed Oxygen Hydration adequate: Yes Nausea and vomiting: No Pain level: 1 Mental status: Baseline
== END 2025-02-19 13:41 | disposition home or self-care (01) ==
PROVIDERS: PCP Family Medicine; Visit Provider Podiatrist Foot & Ankle Surgery
PROC: (CPT 27698; principal; 2025-02-19 10:30)
PROC: (CPT 27698; 2025-02-19 10:30)
PROC: (CPT 27698; 2025-02-19 10:30)
PROC: (CPT 27698; 2025-02-19 10:30)
DX: M25.371 Other instability, right ankle (principal); S86.391A Other injury of muscle(s) and tendon(s) of peroneal muscle group at lower leg level, right leg, initial encounter; X58.XXXA Exposure to other specified factors, initial encounter; M65.871 Other synovitis and tenosynovitis, right ankle and foot; M93.271 Osteochondritis dissecans, right ankle and joints of right foot; E66.01 Morbid (severe) obesity due to excess calories; Z68.41 Body mass index [BMI] 40.0-44.9, adult; M79.7 Fibromyalgia; Z79.01 Long term (current) use of anticoagulants; Z79.891 Long term (current) use of opiate analgesic; K21.9 Gastro-esophageal reflux disease without esophagitis; E78.5 Hyperlipidemia, unspecified; Z87.891 Personal history of nicotine dependence
CPT/HCPCS: 27698; 27659; 29891; 27680; 73610; 76000; C1713; C1734; J0131; J0690; J1100; J2250; J2405; J2704; J2795; J3010; J7030; J9999

== ENCOUNTER → 2025-02-27 07:43 | Outpatient (BNVA) | payer MEDICARE, OTHER, SELFPAY | PROVIDERS: PCP Family Medicine; Visit Provider Student in an Organized Health Care Education/Training Program | DX: M17.12 Unilateral primary osteoarthritis, left knee (principal); M25.562 Pain in left knee; Z01.89 Encounter for other specified special examinations | CPT/HCPCS: 73560; 73565 ==

== ENCOUNTER 2025-02-27 08:40 | Outpatient (CLI) | payer MEDICARE, OTHER, SELFPAY | END 2025-02-27 08:41 | disposition home or self-care (01) | LOC: SPT 08:40 | PROVIDERS: PCP Family Medicine; Visit Provider Student in an Organized Health Care Education/Training Program | DX: Z46.89 Encounter for fitting and adjustment of other specified devices (principal); M17.12 Unilateral primary osteoarthritis, left knee | CPT/HCPCS: L1851 ==

== ENCOUNTER → 2025-03-05 13:29 | Outpatient (BNVA) | payer MEDICARE, OTHER, SELFPAY | PROVIDERS: PCP Family Medicine; Visit Provider Podiatrist Foot & Ankle Surgery | DX: S93.491A Sprain of other ligament of right ankle, initial encounter (principal); M84.361A Stress fracture, right tibia, initial encounter for fracture; Z79.01 Long term (current) use of anticoagulants; X58.XXXA Exposure to other specified factors, initial encounter | CPT/HCPCS: 73610; 85610; 99024 ==

== ENCOUNTER → 2025-03-19 12:53 | Outpatient (BNVA) | payer MEDICARE, OTHER, SELFPAY | PROVIDERS: PCP Family Medicine; Visit Provider Podiatrist Foot & Ankle Surgery | DX: S93.401A Sprain of unspecified ligament of right ankle, initial encounter (principal); S93.491A Sprain of other ligament of right ankle, initial encounter; M84.361A Stress fracture, right tibia, initial encounter for fracture; S86.311A Strain of muscle(s) and tendon(s) of peroneal muscle group at lower leg level, right leg, initial encounter; M24.071 Loose body in right ankle; X58.XXXA Exposure to other specified factors, initial encounter | CPT/HCPCS: 99024 ==

== ENCOUNTER → 2025-04-02 12:47 | Outpatient (BNVA) | payer MEDICARE, OTHER, SELFPAY | PROVIDERS: PCP Family Medicine; Visit Provider Podiatrist Foot & Ankle Surgery | DX: S93.401A Sprain of unspecified ligament of right ankle, initial encounter (principal); S93.491A Sprain of other ligament of right ankle, initial encounter; M84.361A Stress fracture, right tibia, initial encounter for fracture; S86.311A Strain of muscle(s) and tendon(s) of peroneal muscle group at lower leg level, right leg, initial encounter; M24.071 Loose body in right ankle; X58.XXXA Exposure to other specified factors, initial encounter | CPT/HCPCS: 99024 ==

== ENCOUNTER 2025-04-23 10:55 | Outpatient (RCR) | payer MEDICARE, OTHER, SELFPAY | END 2025-04-29 23:59 | disposition home or self-care (01) | LOC: APT 10:55 | PROVIDERS: PCP Family Medicine; Visit Provider Podiatrist Foot & Ankle Surgery | DX: M25.371 Other instability, right ankle (principal) | CPT/HCPCS: 97110 ==

== ENCOUNTER → 2025-05-09 13:35 | Outpatient (BNVA) | payer MEDICARE, OTHER, SELFPAY | PROVIDERS: PCP Family Medicine; Visit Provider Family Medicine | DX: F41.9 Anxiety disorder, unspecified (principal); F32.9 Major depressive disorder, single episode, unspecified; I05.9 Rheumatic mitral valve disease, unspecified; E78.5 Hyperlipidemia, unspecified; R31.9 Hematuria, unspecified | CPT/HCPCS: 80053; 85025; 85610 ==

== ENCOUNTER 2025-05-30 11:53 | Outpatient (RCR) | payer MEDICARE, OTHER, SELFPAY | END 2025-05-30 23:59 | disposition home or self-care (01) | LOC: APT 11:53 | PROVIDERS: PCP Family Medicine; Visit Provider Podiatrist Foot & Ankle Surgery | DX: M25.571 Pain in right ankle and joints of right foot (principal); M84.361A Stress fracture, right tibia, initial encounter for fracture; S93.491A Sprain of other ligament of right ankle, initial encounter; S86.311A Strain of muscle(s) and tendon(s) of peroneal muscle group at lower leg level, right leg, initial encounter; M24.071 Loose body in right ankle; X58.XXXA Exposure to other specified factors, initial encounter | CPT/HCPCS: 97110; 99024 ==